=== PATIENT | female | born 1935 | race Caucasian/White ===

== ENCOUNTER 2020-02-29 12:19 | Inpatient (IN) | payer MEDICARE, BC ==
[~2020-02-29] VITALS: Ht 152.4 cm; Wt 62.6 kg
--- NOTE | 2020-02-29 13:04 | NUR ---
Female railroad track inspector accompanied female patient for (DR Jain).
[2020-02-29] MEDS ORDERED: IV NORMAL SALINE 1000 ML BAG IV ONE (13:15)
[2020-02-29 13:23] LABS: *OCCULT BLOOD STOOL POSITIVE (NEGATIVE)
[2020-02-29] MEDS ORDERED: IV NORMAL SALINE 0 ML IV ONE (13:29)
[2020-02-29] MEDS ORDERED: IOHEXOL 300MG/ML 100 ML INFUS..BTL ONE (13:29)
--- NOTE | 2020-02-29 13:44 | NUR ---
Pt declined to have IV contrasted CT. DR Jain made aware.
[2020-02-29 13:59] LABS: BASOPHILS # (AUTO) 0.1 K/uL (0.0-8.0); BASOPHILS % (AUTO) 1.3 % (0.0-2.0); EOSINOPHILS # (AUTO) 0.2 K/uL (0.0-0.7); EOSINOPHILS % (AUTO) 2.3 % (0.0-7.0); HEMATOCRIT 42.4 % (31.2-41.9); HEMOGLOBIN 13.9 g/dL (10.9-14.3); LYMPHOCYTES # (AUTO) 1.2 K/uL (20.0-40.0); LYMPHOCYTES % (AUTO) 16.8 % (20.5-51.5); MEAN CORPUSCULAR HEMOGLOBIN 30.1 uug (24.7-32.8); MEAN CORPUSCULAR HGB CONC 33 g/dL (32.3-35.6); MEAN CORPUSCULAR VOLUME 91.6 fL (75.5-95.3); MONOCYTES # (AUTO) 0.7 K/uL (2.0-10.0); MONOCYTES % (AUTO) 10.3 % (0.0-11.0); NEUTROPHILS # (AUTO) 4.8 K/uL (1.8-8.9); NEUTROPHILS % (AUTO) 69.3 % (38.5-71.5); PLATELET COUNT (AUTO) 264 K/uL (179-408); RED BLOOD CELL COUNT(AUTO) 4.63 MIL/uL (3.63-4.92); WHITE BLOOD COUNT (AUTO) 6.9 K/uL (3.8-11.8)
[2020-02-29 14:14] LABS: BILIRUBIN,DIRECT 0.3 mg/dL (0.0-0.2); BILIRUBIN,TOTAL 0.9 mg/dL (0.2-1.0); POTASSIUM 3.9 mmol/L (3.5-5.1); TOTAL PROTEIN, SERUM 7.5 g/dL (6.4-8.2)
--- NOTE | 2020-02-29 14:15 | NUR ---
Attempted to place a HL on Pt, but unable. Also attempted by another RN. Dr Jain made aware.Midline ordered.
--- NOTE | 2020-02-29 14:22 | NUR ---
Mid line Rn at the bedside.
--- NOTE | 2020-02-29 14:36 | NUR ---
Dorinda, midline RN placed 20 angio midline to RUE.
--- NOTE | 2020-02-29 15:55 | NUR ---
Dr Portillo, admitting at the bedside.
[2020-02-29] MEDS ORDERED: Z GUARD REMEDY PASTE 57 GM TUBE TOP PRN (16:30)
[2020-02-29] MEDS ORDERED: MAGNESIUM HYDROXIDE 30 ML LIQUID UDC PO PRN (16:30)
[2020-02-29] MEDS ORDERED: ONDANSETRON 4 MG/2 ML VIAL IV PRN (16:30)
[2020-02-29] MEDS: IV 1/2NS 1000 ML 1,000 ML IV PRN (18:47)
[2020-02-29] MEDS: METRONIDAZOLE 500 MG/NS 100ML 500 MG in PREMIXED 1 EACH IV SCH (18:59)
--- NOTE | 2020-02-29 19:00 | NUR ---
PATIENT ADMITTED FROM ER, ALERT, ORIENTED X3, NO SOB, RESP EVEN NONLABORED, SKIN WARM AND DRY TO TOUCH, NO DISTRESS NOTED, DROPLET PLACATIONS FOR COVED POSITIVE
--- NOTE | 2020-02-29 19:30 | NUR ---
RECEIVED PT AWAKE, ALERT AND ORIENTEDX4. IV INTACT. PT ON ROOM AIR. PT DEMANDING BED SIDE COMMODE. SAFETY AND COMFORT PROVIDED. WILL CONTINUE TO MONITOR.
[2020-02-29 20:00] VITALS: BP 134/76
[2020-02-29] MEDS ORDERED: levoFLOXacin 500 MG/D5W 500 MG in PREMIXED 1 EACH IV ONE (20:00)
[2020-02-29] MEDS: ACETAMINOPHEN 325 MG TABLET PO PRN (21:49)
[2020-03-01] MEDS: METRONIDAZOLE 500 MG/NS 100ML 500 MG in PREMIXED 1 EACH IV SCH ×3 (02:13→17:41)
[2020-03-01] MEDS: ACETAMINOPHEN 325 MG TABLET PO PRN ×2 (04:20→21:48)
[2020-03-01 04:28] LABS: *BILIRUBIN,URIN NEGATIVE (NEGATIVE); *BLOOD, URINE 2+ (NEGATIVE); *CLARITY,URINE SLIGHTLY CLOUDY (CLEAR); *COLOR,URINE YELLOW (YELLOW); *KETONES,URINE NEGATIVE (NEGATIVE); *UROBILINOGEN,URINE 0.2 E.U./dl (NORMAL); LEUKOCYTE ESTERASE ,URINE 2+ (NEGATIVE); NITRITE, URINE NEGATIVE (NEGATIVE); UGLUCOSE NEGATIVE (NEGATIVE)
[2020-03-01 05:00] VITALS: BP 128/75
--- NOTE | 2020-03-01 06:19 | NUR ---
PT SLEPT INTERMITTENTLY. PT IN NO ACUTE DISTRESS. PRESCRIBED MEDICATION GIVEN AND PT TOLERATED IT WELL. IV INTACT. PT GIVEN TYLENOL 650 MG PRN AT 2149H AND 0420h . PT TOLERATED IT WELL.PT WANTS TO HAVE HER KLONOPIN MEDICATION. SAFETY AND COMFORT PROVIDED. ALL NEEDS ARE MET. WILL ENDORSE TO INCOMING NURSE FOR CONTINUITY OF CARE.
[2020-03-01 06:42] LABS: BASOPHILS # (AUTO) 0.1 K/uL (0.0-8.0); BASOPHILS % (AUTO) 0.8 % (0.0-2.0); EOSINOPHILS # (AUTO) 0.3 K/uL (0.0-0.7); EOSINOPHILS % (AUTO) 4.4 % (0.0-7.0); HEMATOCRIT 40.2 % (31.2-41.9); HEMOGLOBIN 13.3 g/dL (10.9-14.3); LYMPHOCYTES # (AUTO) 1.7 K/uL (20.0-40.0); LYMPHOCYTES % (AUTO) 27.3 % (20.5-51.5); MEAN CORPUSCULAR HEMOGLOBIN 30.4 uug (24.7-32.8); MEAN CORPUSCULAR HGB CONC 33 g/dL (32.3-35.6); MEAN CORPUSCULAR VOLUME 91.5 fL (75.5-95.3); MONOCYTES # (AUTO) 0.7 K/uL (2.0-10.0); MONOCYTES % (AUTO) 11.4 % (0.0-11.0); NEUTROPHILS # (AUTO) 3.4 K/uL (1.8-8.9); NEUTROPHILS % (AUTO) 56.1 % (38.5-71.5); PLATELET COUNT (AUTO) 265 K/uL (179-408); RED BLOOD CELL COUNT(AUTO) 4.39 MIL/uL (3.63-4.92); WHITE BLOOD COUNT (AUTO) 6.1 K/uL (3.8-11.8)
[2020-03-01 07:10] LABS: BILIRUBIN,TOTAL 0.7 mg/dL (0.2-1.0); CREATININE 0.9 mg/dL (0.6-1.3); MAGNESIUM 1.4 mg/dL (1.8-2.4); POTASSIUM 3.4 mmol/L (3.5-5.1); TOTAL PROTEIN, SERUM 6.8 g/dL (6.4-8.2)
[2020-03-01 08:52] LABS: BACTERIA,URINE MODERATE /HPF (NONE SEEN); SQUAMOUS EPITHELIAL CELL,UR FEW /HPF (NONE SEEN)
[2020-03-01] MEDS: IV 1/2NS 1000 ML 1,000 ML IV PRN ×2 (10:25→13:47)
[2020-03-01] MEDS ORDERED: POTASSIUM CHLORIDE 20 MEQ TAB.PRT.SR PO SCH (11:00)
[2020-03-01 11:09] VITALS: BP 150/61
[2020-03-01] MEDS: MAGNESIUM SULFATE/D5W 100 ML IV SCH ×2 (12:05→13:46)
--- NOTE | 2020-03-01 15:28 | NUR ---
SW Family Contact: This SW attempted to contact patient's Jayce ([phone]) multiple times and was unavailable.
[2020-03-01 16:20] VITALS: BP 131/67
--- NOTE | 2020-03-01 19:30 | NUR ---
RECEIVED PT AWAKE, ALERT AND ORIENTEDX3. PT IN NO ACUTE DISTRESS. IV INTACT. SAFETY AND COMFORT PROVIDED. WILL CONTINUE TO MONITOR.
[2020-03-01 20:00] VITALS: BP 143/75
[2020-03-01] MEDS: LEVOFLOXACIN/D5W 250 MG in PREMIX 1 EA IV SCH (20:00)
--- NOTE | 2020-03-01 23:29 | NUR ---
TYLENOL PRN GIVEN AT 2148H. ZOFRAN PRN GIVEN AT 9H . PT TOLERATED IT WELL.
--- NOTE | 2020-03-01 23:30 | NUR ---
hands off report to Marielle LANGFORD. pt stable and in no acute distress.
[2020-03-02] MEDS: CLONAZEPAM 0.5 MG TABLET PO PRN ×2 (00:07→23:10)
[2020-03-02] MEDS: METRONIDAZOLE 500 MG/NS 100ML 500 MG in PREMIXED 1 EACH IV SCH ×3 (02:38→17:37)
--- NOTE | 2020-03-02 03:52 | NUR ---
Patient resting in bed upon rounds. Tolerated IV ABT well. No acute distress noted. VSS. IVF's infusing well. Denies any pain nor any discomfort. No nausea/vomiting noted. Will monitor patient.
[2020-03-02 04:00] VITALS: BP 122/68
--- NOTE | 2020-03-02 06:47 | NUR ---
End of shift notes: slept well most of the shift. OOB to bedside commode. Voided. Had episode on loose watery BM x1. On IV Flagyl. IVF's infusing @ 75 cc/hr via right upper midline.Attended to needs and met.
--- NOTE | 2020-03-02 08:00 | NUR ---
PATIENT REMAINS ON ISOLATION, DENIES ACUTE SOB OR PAIN, SITTING ON SIDE OF BED MOST OF THE TIME, NPO TILL FURTHER ORDER
[2020-03-02 08:28] LABS: BASOPHILS # (AUTO) 0.1 K/uL (0.0-8.0); BASOPHILS % (AUTO) 1.2 % (0.0-2.0); EOSINOPHILS # (AUTO) 0.1 K/uL (0.0-0.7); EOSINOPHILS % (AUTO) 2.6 % (0.0-7.0); HEMATOCRIT 38.2 % (31.2-41.9); HEMOGLOBIN 12.7 g/dL (10.9-14.3); LYMPHOCYTES # (AUTO) 1.4 K/uL (20.0-40.0); LYMPHOCYTES % (AUTO) 26.2 % (20.5-51.5); MEAN CORPUSCULAR HEMOGLOBIN 30.6 uug (24.7-32.8); MEAN CORPUSCULAR HGB CONC 33 g/dL (32.3-35.6); MEAN CORPUSCULAR VOLUME 92.1 fL (75.5-95.3); MONOCYTES # (AUTO) 0.5 K/uL (2.0-10.0); MONOCYTES % (AUTO) 9.2 % (0.0-11.0); NEUTROPHILS # (AUTO) 3.2 K/uL (1.8-8.9); NEUTROPHILS % (AUTO) 60.8 % (38.5-71.5); PLATELET COUNT (AUTO) 253 K/uL (179-408); RED BLOOD CELL COUNT(AUTO) 4.15 MIL/uL (3.63-4.92); WHITE BLOOD COUNT (AUTO) 5.3 K/uL (3.8-11.8)
[2020-03-02 08:44] LABS: CREATININE 0.9 mg/dL (0.6-1.3); POTASSIUM 3.5 mmol/L (3.5-5.1)
[2020-03-02 11:40] VITALS: BP 139/74
--- NOTE | 2020-03-02 12:00 | NUR ---
NO FURTHER DIARRHEA NOTED OR VOMITING. STARTED ON CLEAR LIQUID DIET
[2020-03-02 16:00] VITALS: BP 126/67
--- NOTE | 2020-03-02 18:00 | NUR ---
RESULTS OF COVID 19 TEST NEGATIVE PER BE FROM THE LAB
[2020-03-02 20:00] VITALS: BP 149/72
[2020-03-02] MEDS: LEVOFLOXACIN/D5W 250 MG in PREMIX 1 EA IV SCH (20:18)
[2020-03-02] MEDS: IV 1/2NS 1000 ML 1,000 ML IV PRN (23:30)
[2020-03-03] MEDS: METRONIDAZOLE 500 MG/NS 100ML 500 MG in PREMIXED 1 EACH IV SCH (01:40)
[2020-03-03 05:18] VITALS: BP 147/79
--- NOTE | 2020-03-03 06:50 | NUR ---
Pt slept well. No s/s of acute distress noted. Pt on RA denies SOB or pain. VSS. Safety measures in place.
[2020-03-03 07:20] LABS: BASOPHILS # (AUTO) 0.1 K/uL (0.0-8.0); BASOPHILS % (AUTO) 1.9 % (0.0-2.0); EOSINOPHILS # (AUTO) 0.3 K/uL (0.0-0.7); LYMPHOCYTES # (AUTO) 1.6 K/uL (20.0-40.0); LYMPHOCYTES % (AUTO) 25.5 % (20.5-51.5); MEAN CORPUSCULAR HEMOGLOBIN 29.9 uug (24.7-32.8); MEAN CORPUSCULAR HGB CONC 33 g/dL (32.3-35.6); MEAN CORPUSCULAR VOLUME 91.8 fL (75.5-95.3); MONOCYTES # (AUTO) 0.7 K/uL (2.0-10.0); MONOCYTES % (AUTO) 11.2 % (0.0-11.0); NEUTROPHILS # (AUTO) 3.5 K/uL (1.8-8.9); NEUTROPHILS % (AUTO) 56.4 % (38.5-71.5); PLATELET COUNT (AUTO) 240 K/uL (179-408); RED BLOOD CELL COUNT(AUTO) 4.36 MIL/uL (3.63-4.92); WHITE BLOOD COUNT (AUTO) 6.1 K/uL (3.8-11.8)
[2020-03-03 07:29] LABS: CREATININE 0.8 mg/dL (0.6-1.3); POTASSIUM 3.6 mmol/L (3.5-5.1)
[2020-03-03] MEDS: METRONIDAZOLE 500 MG TABLET PO SCH ×2 (11:38→18:31)
[2020-03-03 16:00] VITALS: BP 128/71
[2020-03-03] MEDS ORDERED: PRAV40TA3 PO (17:04)
[2020-03-03] MEDS ORDERED: ONDA4TAB11 PO (17:04)
[2020-03-03] MEDS ORDERED: SOTA80TA PO (17:04)
[2020-03-03] MEDS ORDERED: LOSA50TA39 PO (17:04)
[2020-03-03] MEDS ORDERED: APIX5TAB4 PO (17:04)
[2020-03-03] MEDS ORDERED: LEVO75TA7 PO (17:04)
[2020-03-03] MEDS ORDERED: CEPH500T PO (17:04)
[2020-03-03] MEDS ORDERED: ESCI10TA55 PO (17:04)
[2020-03-03] MEDS ORDERED: GABA-532 PO (17:04)
[2020-03-03] MEDS ORDERED: CLON0.5T4 PO (17:04)
[2020-03-03] MEDS ORDERED: PANT40TA49 PO (17:04)
--- NOTE | 2020-03-03 18:30 | NUR ---
REFUSING FLAGYL. STATES WILL SPEAK TO FIRST.
--- NOTE | 2020-03-03 19:00 | NUR ---
PT IN BED, ALERT ORIENTED,ABLE TO MAKE NEEDS KNOWN,VOIDED FREELY WELL USING BEDSIDE COMMODE. KEPT DRY AND CLEAN.SLEPT INTERMITTENTLY.IVF INFUSING WELL VIA MIDLINE ON RIGHT UPPER ARM. SAFETY MEASURES IMPLEMENTED AND OBSERVED.
[2020-03-03 20:00] VITALS: BP 124/64
[2020-03-03] MEDS: levoFLOXacin 500 MG TABLET PO SCH (20:00)
[2020-03-03] MEDS: CLONAZEPAM 0.5 MG TABLET PO PRN (22:05)
[2020-03-04] MEDS: METRONIDAZOLE 500 MG TABLET PO SCH ×3 (02:18→17:46)
--- NOTE | 2020-03-04 05:09 | NUR ---
ASSISTED TO USE BEDSIDE COMMODE, REPOSITIONED FOR COMFORT, MIDLINE ON RT. UPPERARM CLOGGED, TRIED TO FLUSH LINE BUT TO NO AVAIL.PT REFUSED TO HAVE IV RESTARTED AT THIS TIME.
--- NOTE | 2020-03-04 07:55 | NUR ---
Received PT in bed, awake AO X 4. PT is cooperative and pleasant. Makes needs known to staff. No acute distress or SOB noted. PT stated that they had a good sleep. Safety measures provided, call light within reach, bed low and lock. Will continue to monitor.
[2020-03-04 08:11] LABS: BASOPHILS # (AUTO) 0.1 K/uL (0.0-8.0); BASOPHILS % (AUTO) 1.3 % (0.0-2.0); EOSINOPHILS # (AUTO) 0.2 K/uL (0.0-0.7); EOSINOPHILS % (AUTO) 2.8 % (0.0-7.0); HEMATOCRIT 40.9 % (31.2-41.9); HEMOGLOBIN 13.2 g/dL (10.9-14.3); LYMPHOCYTES # (AUTO) 1.6 K/uL (20.0-40.0); LYMPHOCYTES % (AUTO) 20.4 % (20.5-51.5); MEAN CORPUSCULAR HGB CONC 32 g/dL (32.3-35.6); MEAN CORPUSCULAR VOLUME 93.4 fL (75.5-95.3); MONOCYTES # (AUTO) 0.6 K/uL (2.0-10.0); MONOCYTES % (AUTO) 7.5 % (0.0-11.0); NEUTROPHILS # (AUTO) 5.4 K/uL (1.8-8.9); PLATELET COUNT (AUTO) 213 K/uL (179-408); RED BLOOD CELL COUNT(AUTO) 4.38 MIL/uL (3.63-4.92); WHITE BLOOD COUNT (AUTO) 7.9 K/uL (3.8-11.8)
[2020-03-04 08:28] VITALS: BP 130/72
[2020-03-04 08:43] LABS: CREATININE 0.9 mg/dL (0.6-1.3); POTASSIUM 3.2 mmol/L (3.5-5.1)
[2020-03-04 11:00] VITALS: BP 129/56
[2020-03-04] MEDS ORDERED: POTASSIUM CHLORIDE 20 MEQ POWDER PACKET PO ONE (12:15)
[2020-03-04 14:35] VITALS: BP 113/57
[2020-03-04] MEDS ORDERED: CLONAZEPAM 0.5 MG TABLET PO PRN (15:30)
[2020-03-04] MEDS: GABAPENTIN 100 MG CAPSULE PO SCH (17:46)
--- NOTE | 2020-03-04 18:59 | NUR ---
PT in bed, awake AO X4. PT was able to consume all meals. Ambulates to commode with 1 person assist. No acute distress or SOB noted. Safety measures provided, call light within reach, bed low and lock. Will endorse report to night manager nurse
--- NOTE | 2020-03-04 19:54 | NUR ---
PT in bed, awake AO X4. Ambulates to commode with 1 person assist. No acute distress or SOB noted. Safety measures provided, call light within reach, bed low and lock. Will continue to monitor PT and follow plan of care.
[2020-03-04 20:00] VITALS: BP 125/81
--- NOTE | 2020-03-04 20:00 | NUR ---
OPENING NOTE: PT in bed, awake AO X4. Ambulates to commode with 1 person assist. PT is on 2L nasal cannula. No acute distress or SOB noted. Safety measures provided, call light within reach, bed low and lock. Will continue to monitor PT and follow plan of care.
[2020-03-04] MEDS ORDERED: ATORVASTATIN 10 MG TABLET PO SCH (21:00)
[2020-03-04] MEDS ORDERED: Medication Not On Formulary EA (Apixaban (Eliquis) 5 MG) PO SCH (21:00)
[2020-03-04] MEDS: levoFLOXacin 500 MG TABLET PO SCH (21:24)
[2020-03-04] MEDS: APIXABAN 5 MG TABLET PO SCH (21:26)
[2020-03-04] MEDS: ACETAMINOPHEN 325 MG TABLET PO PRN (22:32)
[2020-03-05] MEDS: METRONIDAZOLE 500 MG TABLET PO SCH ×3 (02:12→17:42)
[2020-03-05 04:00] VITALS: BP 124/60
--- NOTE | 2020-03-05 06:46 | NUR ---
CLOSING NOTES: PT in bed, awake AO X4. Ambulates to commode with 1 person assist. PT is on 2L nasal cannula, saturating at 96%. No acute distress or SOB noted. Safety measures provided, call light within reach, bed low and lock. Will continue to monitor PT and follow plan of care. Will endorse to the on coming shift.
[2020-03-05] MEDS ORDERED: PANTOPRAZOLE SODIUM 40 MG TABLET.DR PO SCH (07:00)
[2020-03-05] MEDS ORDERED: LEVOTHYROXINE SODIUM 75 MCG TABLET PO SCH (07:00)
[2020-03-05 08:38] LABS: POTASSIUM 3.6 mmol/L (3.5-5.1)
[2020-03-05] MEDS ORDERED: LOSARTAN POTASSIUM 50 MG TABLET PO SCH (09:00)
[2020-03-05] MEDS: GABAPENTIN 100 MG CAPSULE PO SCH ×3 (09:08→17:27)
[2020-03-05] MEDS: APIXABAN 5 MG TABLET PO SCH (09:22)
[2020-03-05 10:21] LABS: BASOPHILS # (AUTO) 0.1 K/uL (0.0-8.0); BASOPHILS % (AUTO) 1.4 % (0.0-2.0); EOSINOPHILS # (AUTO) 0.4 K/uL (0.0-0.7); HEMATOCRIT 40.5 % (31.2-41.9); HEMOGLOBIN 12.6 g/dL (10.9-14.3); LYMPHOCYTES # (AUTO) 1.5 K/uL (20.0-40.0); LYMPHOCYTES % (AUTO) 29.6 % (20.5-51.5); MEAN CORPUSCULAR HEMOGLOBIN 30.2 uug (24.7-32.8); MEAN CORPUSCULAR HGB CONC 31 g/dL (32.3-35.6); MEAN CORPUSCULAR VOLUME 97.3 fL (75.5-95.3); MONOCYTES # (AUTO) 0.6 K/uL (2.0-10.0); NEUTROPHILS # (AUTO) 2.5 K/uL (1.8-8.9); PLATELET COUNT (AUTO) 193 K/uL (179-408); RED BLOOD CELL COUNT(AUTO) 4.16 MIL/uL (3.63-4.92); WHITE BLOOD COUNT (AUTO) 5.2 K/uL (3.8-11.8)
[2020-03-05 11:43] VITALS: BP 141/57
[2020-03-05] MEDS ORDERED: levoFLOXacin PO (15:10)
[2020-03-05] MEDS ORDERED: METR-147 PO (15:10)
[2020-03-05 15:45] VITALS: BP 118/50
--- NOTE | 2020-03-05 17:44 | NUR ---
PT in bed, awake AO X4. Ambulates to commode with 1 person assist. initially refused ATB flagyl, explained to her that she needs to finish the antibiotic for 7 days, understand and verbalized her understanding to continue taking her antibiotic. No acute distress or SOB noted. Safety measures provided, call light within reach, bed low and lock. had PT jose enrique, will be discharged with this afternoon and be pickup by her son Jayce. give discharged pocket and explained to the pt the discharge instructions, pt understand and verbalized her understanding
[2020-03-05] MEDS ORDERED: SOTALOL HCL 80 MG TABLET PO SCH (21:00)
[2020-03-06] MEDS ORDERED: ESCITALOPRAM OXALATE 10 MG TABLET PO SCH (09:00)
== END 2020-03-05 19:30 | disposition home health service (06) | DRG 393 ==
LOC: ER 12:19 → MEDSURG3 17:35
PROVIDERS: ADMIT Internal Medicine; ATTEND Family Medicine
PROC: 05HY33Z Insertion of Infusion Device into Upper Vein, Percutaneous Approach (ICD-10-PCS; principal; 2020-02-29)
DX: K62.89 Other specified diseases of anus and rectum (principal); J12.9 Viral pneumonia, unspecified; Z86.16 Personal history of COVID-19; E03.9 Hypothyroidism, unspecified; I10 Essential (primary) hypertension; Z86.73 Personal history of transient ischemic attack (TIA), and cerebral infarction without residual deficits; K76.0 Fatty (change of) liver, not elsewhere classified; Z87.01 Personal history of pneumonia (recurrent); E66.9 Obesity, unspecified; Z68.27 Body mass index [BMI] 27.0-27.9, adult; K57.30 Diverticulosis of large intestine without perforation or abscess without bleeding; Z20.822 Contact with and (suspected) exposure to COVID-19
CPT/HCPCS: 36415; 70030-TC; 71045; 83605; 83690; 83735; 84100; 85025; 85730; 87040; 87077; 87086; 93005; A4663; G0378; J1956; J2405; J3475; J3490; J7050; Q9967; U0003

== ENCOUNTER 2021-05-26 18:49 | Inpatient (IN) | payer MEDICARE, BC ==
[~2021-05-26] VITALS: Ht 160 cm; Wt 88.0 kg
[~2021-05-26 18:49] MED LIST: APIX5TAB4 PO; CLON0.5T4 PO; ESCI-9 PO; GABA-532 PO; LEVO75TA7 PO; LOSA50TA39 PO; METR-147 PO; ONDA4TAB11 PO; PANT40TA49 PO; PRAV40TA3 PO; SOTA80TA PO; levoFLOXacin PO
--- NOTE | 2021-05-26 19:00 | NUR ---
Patient is brought by EMS, alert and orientedx3. Patient complaints of body pains, no nausea/vomiting. History of cardiac afib, hypertension. Not in distress.
[2021-05-26] MEDS ORDERED: ONDANSETRON 4 MG/2 ML VIAL IV ONE (20:15)
[2021-05-26] MEDS ORDERED: HYDROMORPHONE 1 MG/1 ML DISP.SYRIN IV ONE (20:15)
[2021-05-26 20:39] LABS: HEMATOCRIT 47.2 % (31.2-41.9); MEAN CORPUSCULAR HEMOGLOBIN 29.2 uug (24.7-32.8); MEAN CORPUSCULAR VOLUME 89.3 fL (75.5-95.3); PLATELET COUNT (AUTO) 207 K/uL (179-408)
[2021-05-26 20:41] LABS: *BILIRUBIN,URIN NEGATIVE (NEGATIVE); *CLARITY,URINE CLEAR (CLEAR); *COLOR,URINE YELLOW (YELLOW); *KETONES,URINE NEGATIVE (NEGATIVE); *UROBILINOGEN,URINE 0.2 E.U./dl (NORMAL); LEUKOCYTE ESTERASE ,URINE NEGATIVE (NEGATIVE); NITRITE, URINE NEGATIVE (NEGATIVE); UGLUCOSE NEGATIVE (NEGATIVE)
[2021-05-26 20:45] LABS: *BLOOD, URINE TRACE (NEGATIVE)
[2021-05-26 20:47] LABS: CARBON DIOXIDE 25 mmol/L (21-32); CHLORIDE 103 mmol/L (98-107); CREATININE 0.6 mg/dL (0.6-1.3); GLUCOSE 115 mg/dL (74-106); POTASSIUM 3.7 mmol/L (3.5-5.1); UREA NITROGEN, BLOOD 12 mg/dL (7-18)
[2021-05-26 20:48] LABS: BACTERIA,URINE NONE SEEN /HPF (NONE SEEN); RBC,URINE 0-3 /HPF (0-3); SQUAMOUS EPITHELIAL CELL,UR NONE SEEN /HPF (NONE SEEN); WBC,URINE NONE SEEN /HPF (0-3)
[2021-05-26 20:55] LABS: ALANINE AMINOTRANSFERASE 19 U/L (14-59); ALKALINE PHOSPHATASE 108 U/L (50-136); ASPARTATE AMINOTRANSFERASE 14 U/L (15-37); BILIRUBIN,DIRECT 0.1 mg/dL (0.0-0.2); BILIRUBIN,TOTAL 0.6 mg/dL (0.2-1.0); LIPASE 26 U/L (73-393); TOTAL PROTEIN, SERUM 7.6 g/dL (6.4-8.2)
[2021-05-26] MEDS ORDERED: ONDANSETRON 4 MG/2 ML VIAL ONE (21:02)
[2021-05-26] MEDS ORDERED: HYDROMORPHONE 1 MG/1 ML DISP.SYRIN ONE (21:03)
--- NOTE | 2021-05-26 21:23 | NUR ---
pt cleaned and changed as she voided in the bed. pt now taken for cat scan.
--- NOTE | 2021-05-26 21:38 | NUR ---
pt returned from cat scan.
--- NOTE | 2021-05-27 00:33 | NUR ---
pt placed in hospital bed for comfort. pt unable to go home as she states she does not have a ride. Dr. Ibeth yuan.
--- NOTE | 2021-05-27 03:04 | NUR ---
call placed to [facility] regarding cat scan.
[2021-05-27] MEDS ORDERED: OXYC-128 PO (04:28)
--- NOTE | 2021-05-27 05:40 | NUR ---
911 run sheet requested from ER budget report clerk multiple calls made to the number that called 911. This number is [phone]. When this number is called it rings then states enter access code. Asked pt a number for her son she states she does not know it.
--- NOTE | 2021-05-27 08:18 | NUR ---
Pt sleeping in bed, arouses easily, no complaints, no distress noted. Gave pt breakfast tray.
--- NOTE | 2021-05-27 09:20 | NUR ---
Gave report to ANASTASIYA Cohen.
[2021-05-27 10:30] VITALS: BP 132/68
--- NOTE | 2021-05-27 10:30 | NUR ---
admitted from er an 86 yo female c/o increasing myalgia, generalized weakness, awake alert and answer questions appropriately. routine admission assessment done DR PASTOR made aware of admission
[2021-05-27] MEDS ORDERED: TEMAZEPAM 15 MG CAPSULE PO PRN (11:30)
[2021-05-27] MEDS ORDERED: CLONAZEPAM 0.5 MG TABLET PO PRN (11:30)
[2021-05-27] MEDS ORDERED: MAGNESIUM HYDROXIDE 30 ML LIQUID UDC PO PRN (11:30)
[2021-05-27] MEDS ORDERED: ACETAMINOPHEN 325 MG TABLET PO PRN (11:30)
[2021-05-27] MEDS ORDERED: ONDANSETRON 4 MG/2 ML VIAL IV PRN (11:30)
[2021-05-27] MEDS ORDERED: HYDROCODONE/APAP 5-325MG TABLET PO PRN (11:30)
[2021-05-27] MEDS ORDERED: APIXABAN 5 MG TABLET PO ONE (12:00)
[2021-05-27] MEDS: GABAPENTIN 100 MG CAPSULE PO SCH ×2 (12:26→17:07)
[2021-05-27 16:00] VITALS: BP 135/70
--- NOTE | 2021-05-27 16:04 | NUR ---
PATIENT REMAINS CALM, COMFORTABLE AND COMPLIANCE WITH CARE, DENIES PAIN OR FEELING OF DISTRESS. O2 AT 2L NC SATURATING 95%. WILL CONTINUE TO OBSERVE
[2021-05-27 20:30] VITALS: BP 136/54
[2021-05-27] MEDS: SOTALOL HCL 80 MG TABLET PO SCH (20:32)
[2021-05-27] MEDS: ATORVASTATIN 10 MG TABLET PO SCH (20:33)
[2021-05-27] MEDS: APIXABAN 5 MG TABLET PO SCH (20:35)
[2021-05-27] MEDS: DOCUSATE SODIUM 100 MG CAPSULE PO SCH (20:46)
[2021-05-28 00:20] VITALS: BP 147/57
[2021-05-28 04:15] VITALS: BP 145/74
--- NOTE | 2021-05-28 06:00 | NUR ---
Pt rested well in between care; no SOB; assisted with needs; continue to monitor; continue plan of care.
[2021-05-28] MEDS: PANTOPRAZOLE SODIUM 40 MG TABLET.DR PO SCH (06:17)
[2021-05-28] MEDS: LEVOTHYROXINE SODIUM 75 MCG TABLET PO SCH (06:17)
[2021-05-28] MEDS ORDERED: PANTOPRAZOLE SODIUM 40 MG TABLET.DR PO SCH (07:00)
[2021-05-28 07:06] LABS: HEMATOCRIT 42.5 % (31.2-41.9); MEAN CORPUSCULAR VOLUME 89.2 fL (75.5-95.3); PLATELET COUNT (AUTO) 205 K/uL (179-408)
[2021-05-28 07:28] LABS: BILIRUBIN,TOTAL 0.6 mg/dL (0.2-1.0); MAGNESIUM 2.2 mg/dL (1.8-2.4); PHOSPHOROUS 4.2 mg/dL (2.5-4.9); POTASSIUM 4.4 mmol/L (3.5-5.1); TOTAL PROTEIN, SERUM 6.9 g/dL (6.4-8.2)
[2021-05-28 08:00] VITALS: BP 136/78
[2021-05-28 08:19] LABS: THYROID STIMULATING HORMONE 3.374 mIU/mL (0.358-3.740)
[2021-05-28] MEDS: LOSARTAN POTASSIUM 50 MG TABLET PO SCH (08:59)
[2021-05-28] MEDS: SOTALOL HCL 80 MG TABLET PO SCH (09:00)
[2021-05-28] MEDS ORDERED: ESCITALOPRAM OXALATE 10 MG TABLET PO SCH (09:00)
[2021-05-28] MEDS: APIXABAN 5 MG TABLET PO SCH ×2 (09:00→20:20)
[2021-05-28] MEDS: GABAPENTIN 100 MG CAPSULE PO SCH ×3 (09:00→16:22)
[2021-05-28 12:00] VITALS: BP 145/65
--- NOTE | 2021-05-28 12:00 | NUR ---
NO ACUTE CHANGE FROM MORNING ASSESSMENT
[2021-05-28 16:01] VITALS: BP 135/33
--- NOTE | 2021-05-28 17:14 | NUR ---
CONTINUE TELE STATUS, SEEN BY DR ROGER DCD SOTALOL DUE TO LOW HEART RATE
[2021-05-28] MEDS: DOCUSATE SODIUM 100 MG CAPSULE PO SCH (20:20)
[2021-05-28] MEDS: ATORVASTATIN 10 MG TABLET PO SCH (20:20)
[2021-05-28 20:21] VITALS: BP 155/67
[2021-05-29] VITALS: BP 145/57
[2021-05-29 04:21] VITALS: BP 161/73
[2021-05-29] MEDS: PANTOPRAZOLE SODIUM 40 MG TABLET.DR PO SCH (06:19)
[2021-05-29] MEDS: LEVOTHYROXINE SODIUM 75 MCG TABLET PO SCH (06:20)
--- NOTE | 2021-05-29 07:06 | NUR ---
patient rested well in between care; pt refuses this morning's medication; pt verbalized concern about the pt next door to her; pt reassured that the pt next door is being taken care for.
[2021-05-29] MEDS: APIXABAN 5 MG TABLET PO SCH ×2 (08:51→21:35)
[2021-05-29] MEDS: GABAPENTIN 100 MG CAPSULE PO SCH ×3 (08:55→16:59)
[2021-05-29] MEDS: LOSARTAN POTASSIUM 50 MG TABLET PO SCH (08:59)
--- NOTE | 2021-05-29 10:00 | NUR ---
DR JOEL HERE SEEN PATIENT WITH NO NEW ORDERS AT THIS TIME.
[2021-05-29 11:31] VITALS: BP 141/68
[2021-05-29] MEDS ORDERED: CLONAZEPAM 0.5 MG TABLET PO PRN (14:00)
--- NOTE | 2021-05-29 14:00 | NUR ---
PATIENT STATED THAT SHE WANTS HER KLONOPIN TO BE ORDERED NEEDED INSTEAD OF ONE TIME AT NIGHT NOTIFIED DR PASTOR WITH NEW ORDERS AND NOTED PATIENT NOTIFIED THAT WE NOW HAVE AN ORDER AND SHE CAN REQUEST FOR THE KLONOPIN EVERY 8 HOURS NEEDED AND SHE EXPRESSED UNDERSTANDING.
[2021-05-29 16:38] VITALS: BP 150/79
--- NOTE | 2021-05-29 18:03 | NUR ---
RESTING DENIES CHEST PAIN USING O2 ON AND OFF WITH NO SOB AT THIS TIME WILL CONTINUE TO OBSERVE.
[2021-05-29 20:15] VITALS: BP 160/59
[2021-05-29] MEDS: DOCUSATE SODIUM 100 MG CAPSULE PO SCH (21:00)
[2021-05-29] MEDS: ATORVASTATIN 10 MG TABLET PO SCH (21:37)
[2021-05-30] VITALS: BP 185/81
[2021-05-30 04:21] VITALS: BP 115/62
[2021-05-30 06:38] LABS: MEAN CORPUSCULAR HEMOGLOBIN 30.4 uug (24.7-32.8); MEAN CORPUSCULAR VOLUME 89.7 fL (75.5-95.3); PLATELET COUNT (AUTO) 212 K/uL (179-408)
[2021-05-30 06:53] LABS: CREATININE 0.9 mg/dL (0.6-1.3); MAGNESIUM 2.1 mg/dL (1.8-2.4); PHOSPHOROUS 3.4 mg/dL (2.5-4.9); POTASSIUM 4.8 mmol/L (3.5-5.1)
[2021-05-30] MEDS: LEVOTHYROXINE SODIUM 75 MCG TABLET PO SCH (07:00)
[2021-05-30] MEDS: PANTOPRAZOLE SODIUM 40 MG TABLET.DR PO SCH (07:00)
--- NOTE | 2021-05-30 07:41 | NUR ---
RECEIVED PATIENT IN BED AWAKE ALERT AND ORIENTED DENIES PAIN OR DISCOMFORTS AT THIS TIME DENIES SHORTNESS OF BREATH O2 NOT IN USE AT THIS TIME PATIENT HAS THE TENDENCY TO REMOVE BUT SATS HAS BEEN ADEQUATE CALL LIGHTS AND HER PERSONAL BELONGINGS WILL CONTINUE TO OBSERVE.
[2021-05-30] MEDS: GABAPENTIN 100 MG CAPSULE PO SCH ×2 (09:00→13:00)
[2021-05-30] MEDS ORDERED: LOSARTAN POTASSIUM 50 MG TABLET PO SCH (09:00)
[2021-05-30] MEDS ORDERED: LOSA50TA39 PO (09:18)
[2021-05-30] MEDS ORDERED: MECLIZINE HCL 25 MG TABLET PO PRN (09:30)
[2021-05-30] MEDS: APIXABAN 5 MG TABLET PO SCH (09:40)
--- NOTE | 2021-05-30 10:00 | NUR ---
ORDER TO DISCHARGE PATIENT HOME TODAY NOTED AND PER THE STUDENT LIAISON OFFICER PATIENTS SON EDITH WILL BE HERE TO PICK PATIENT UP ABOUT 2PM TODAY.
[2021-05-30 11:51] VITALS: BP 125/60
--- NOTE | 2021-05-30 13:45 | NUR ---
NOTED THAT PATIENT HAS HER O2 ON AND SHE HAS BEEN WEARING THE O2 ON AND OFF SO O2 REMOVED AT THIS TIME TO REASSESS THE NEED FOR HOME O2 PATIENT IS ON ROOM AIR AT THIS TIME WILL CHECK O2 SAT IN ABOUT 15 MINS OR SOONER IF SHE EXPERIENCES SHORTNESS OF BREATH.
--- NOTE | 2021-05-30 13:59 | NUR ---
O2 SAT RECHECKED AND ROOM AIR SAT IS 97 PERCENT SO PATIENT HAS NO NEED FOR HOME O2 HER SON EDITH IS PRESENT IN THE ROOM.
--- NOTE | 2021-05-30 14:00 | NUR ---
PATIENT DISCHARGED WITH ALL HER PERSONAL BELONGINGS AND WAS INSTRUCTED TO STOP TAKING SOTALOL AND TO INCREASE THE FREQUENCY OF HER LORSARTAN TO TWICE A DAY INSTEAD OF ONCE A DAY AND TO CALL FOR A FOLLOW UP APPOINTMENT WITH HER PRIMARY DOCTOR WITHIN THE NEXT ONE TO TWO WEEKS AND SHE EXPRESSED UNDERSTANDING.
== END 2021-05-30 14:00 | disposition home health service (06) | DRG 310 ==
LOC: ER 18:50 → MEDSURG3 05-27 10:00 → TELE3 05-27 10:20 → MEDSURG3 05-30 06:55
PROVIDERS: ADMIT Internal Medicine; ATTEND Internal Medicine
DX: R00.1 Bradycardia, unspecified (principal); I48.20 Chronic atrial fibrillation, unspecified; R53.1 Weakness; F07.81 Postconcussional syndrome; G30.9 Alzheimer's disease, unspecified; F02.80 Dementia in other diseases classified elsewhere, unspecified severity, without behavioral disturbance, psychotic disturbance, mood disturbance, and anxiety; E03.9 Hypothyroidism, unspecified; E78.5 Hyperlipidemia, unspecified; I10 Essential (primary) hypertension; Z86.16 Personal history of COVID-19; M41.9 Scoliosis, unspecified; R10.9 Unspecified abdominal pain; K44.9 Diaphragmatic hernia without obstruction or gangrene; I70.90 Unspecified atherosclerosis; M19.90 Unspecified osteoarthritis, unspecified site; G31.9 Degenerative disease of nervous system, unspecified; M79.10 Myalgia, unspecified site; Z91.81 History of falling; Z79.01 Long term (current) use of anticoagulants; Z90.710 Acquired absence of both cervix and uterus; K40.20 Bilateral inguinal hernia, without obstruction or gangrene, not specified as recurrent; Z20.822 Contact with and (suspected) exposure to COVID-19; E66.3 Overweight; Z68.34 Body mass index [BMI] 34.0-34.9, adult
CPT/HCPCS: 36415; 70450; 71045; 83605; 83690; 83735; 84100; 84443; 84484; 85025; 85651; 93005; 93307; 97161; A4663; G0378; J1170; J2405

== ENCOUNTER 2022-06-08 22:33 | Emergency (ER) | payer MEDICARE, BC ==
[~2022-06-08] VITALS: Ht 154.9 cm; Wt 90.7 kg
[~2022-06-08 22:33] MED LIST changes: -METR-147 PO; -ONDA4TAB11 PO; -SOTA80TA PO; -levoFLOXacin PO
[2022-06-08] MEDS: ONDANSETRON 4 MG/2 ML VIAL IV ONE (23:00)
[2022-06-08] MEDS: HYDROMORPHONE 1 MG/1 ML DISP.SYRIN IV ONE (23:00)
[2022-06-08] MEDS: IV NORMAL SALINE 1000 ML BAG IV ONE (23:00)
--- NOTE | 2022-06-08 23:00 | NUR ---
Dr. Cristina evaluating patient at bedside. MSE in progress.
--- NOTE | 2022-06-09 | NUR ---
Unable to administer dilaudid 1mg, 1L 0.9%NS and Zofran 4mg IV due to unable to get IV access. Patient is hard stick. Dr. Cristina aware
--- NOTE | 2022-06-09 00:38 | NUR ---
After multiple IV attempts, pt refused anymore IV insertion. notified.
[2022-06-09 01:45] LABS: ALANINE AMINOTRANSFERASE 17 U/L (14-59); ALKALINE PHOSPHATASE 111 U/L (50-136); ASPARTATE AMINOTRANSFERASE 26 U/L (15-37); BILIRUBIN,DIRECT < 0.1 mg/dL (0.0-0.2); BILIRUBIN,TOTAL 0.6 mg/dL (0.2-1.0); CARBON DIOXIDE 22 mmol/L (21-32); CHLORIDE 101 mmol/L (98-107); GLUCOSE 129 mg/dL (74-106); LIPASE 36 U/L (73-393); POTASSIUM 5.3 mmol/L (3.5-5.1); TOTAL PROTEIN, SERUM 7.8 g/dL (6.4-8.2); UREA NITROGEN, BLOOD 24 mg/dL (7-18)
[2022-06-09 02:00] LABS: *BILIRUBIN,URIN NEGATIVE (NEGATIVE); *BLOOD, URINE NEGATIVE (NEGATIVE); *CLARITY,URINE CLEAR (CLEAR); *COLOR,URINE YELLOW (YELLOW); *KETONES,URINE 2+ (NEGATIVE); *UROBILINOGEN,URINE 0.2 E.U./dl (NORMAL); LEUKOCYTE ESTERASE ,URINE NEGATIVE (NEGATIVE); NITRITE, URINE NEGATIVE (NEGATIVE); UGLUCOSE NEGATIVE (NEGATIVE)
[2022-06-09 02:23] LABS: HEMATOCRIT 40.5 % (31.2-41.9); MEAN CORPUSCULAR HEMOGLOBIN 29.6 uug (24.7-32.8); MEAN CORPUSCULAR VOLUME 88.1 fL (75.5-95.3); PLATELET COUNT (AUTO) 203 K/uL (179-408)
[2022-06-09] MEDS ORDERED: HYDR-3980 PO (03:36)
[2022-06-09] MEDS ORDERED: PROC10TA29 PO (03:36)
--- NOTE | 2022-06-09 04:00 | NUR ---
Miriam nugent in ED - 06/09/22 at 0415 by ABEL Spoke with patient's Rich. Per , he will come to tack picker patient in 1hr.
--- NOTE | 2022-06-09 04:23 | NUR ---
Spoke with Jayce (son) regarding patient ready for discharge. Patient's son unable to pick her up at this time. Per son Munira Eduardo (patient's roomate) can pick her up.
--- NOTE | 2022-06-09 04:26 | NUR ---
Called Munira cardenas) at , no answer. Left a message. Waiting for call back.
--- NOTE | 2022-06-09 04:30 | NUR ---
Called patient's home phone number [phone], no answer. Left a message.
--- NOTE | 2022-06-09 05:49 | NUR ---
#2 attempt call to Munira. No answer. Left a voicemail.
--- NOTE | 2022-06-09 07:22 | NUR ---
Called Jayce (son) no answer, left a voicemail.
--- NOTE | 2022-06-09 07:30 | NUR ---
Mechanism Assembler assumes care. Patient is waiting for someone to mixing picker tender her up. Patient has been discharged to home by Dr Cristina@[id number]. Written and verbal after care instructions were given by previous RN. Patient verbalized understanding and compliance of instructions. Stressed follow up with primary doctor or return to ER for worsening s/s.
--- NOTE | 2022-06-09 08:33 | NUR ---
Patient's son came and fern picker the patient. Patient left ER in stable condition.
== END 2022-06-09 08:38 | disposition home or self-care (01) ==
LOC: ER 22:33
DX: K80.50 Calculus of bile duct without cholangitis or cholecystitis without obstruction (principal); I48.91 Unspecified atrial fibrillation; E03.9 Hypothyroidism, unspecified; Z90.710 Acquired absence of both cervix and uterus; Z88.1 Allergy status to other antibiotic agents; Z79.899 Other long term (current) drug therapy
CPT/HCPCS: 36415; 83605; 83690; 84484; 85025; 85730; 93005; A4663

== ENCOUNTER 2022-10-06 03:15 | Inpatient (IN) | payer MEDICARE, BC ==
[~2022-10-06] VITALS: Ht 157.5 cm; Wt 86.0 kg
[~2022-10-06 03:15] MED LIST changes: +HYDR-3980 PO; +PROC10TA29 PO
[2022-10-06] MEDS ORDERED: IV NORMAL SALINE 500 ML BAG IV ONE (03:30)
[2022-10-06] MEDS ORDERED: ONDANSETRON 4 MG/2 ML VIAL IV ONE (03:30)
[2022-10-06] MEDS ORDERED: ONDANSETRON 4 MG/2 ML VIAL ONE (03:36)
[2022-10-06] MEDS ORDERED: ONDANSETRON ODT 4 MG TAB.RAPDIS ONE (03:52)
[2022-10-06] MEDS ORDERED: ONDANSETRON ODT 4 MG TAB.RAPDIS SL ONE (04:00)
[2022-10-06 04:07] LABS: BASOPHILS % (AUTO) 0.4 % (0.0-2.0); DIFFERENTIAL COMMENT 0; EOSINOPHILS % (AUTO) 0.4 % (0.0-7.0); HEMATOCRIT 46.1 % (31.2-41.9); HEMOGLOBIN 15.2 g/dL (10.9-14.3); LYMPHOCYTES # (AUTO) 0.9 K/uL (0.8-4.8); LYMPHOCYTES % (AUTO) 9.7 % (20.5-51.5); MEAN CORPUSCULAR HEMOGLOBIN 29.7 uug (24.7-32.8); MEAN CORPUSCULAR HGB CONC 33 g/dL (32.3-35.6); MONOCYTES # (AUTO) 0.6 K/uL (0.1-1.30); MONOCYTES % (AUTO) 5.9 % (0.0-11.0); NEUTROPHILS % (AUTO) 83.6 % (38.5-71.5); PLATELET COUNT (AUTO) 217 K/uL (179-408); RED BLOOD CELL COUNT(AUTO) 5.12 MIL/uL (3.63-4.92); RED CELL DISTRIBUTION WIDTH 15.7 % (12.3-17.7); WHITE BLOOD COUNT (AUTO) 9.5 K/uL (3.8-11.8)
[2022-10-06 04:31] LABS: CALCIUM 9.2 mg/dL (8.5-10.1); CARBON DIOXIDE 20 mmol/L (21-32); CHLORIDE 100 mmol/L (98-107); CREATININE 1.1 mg/dL (0.6-1.3); GLUCOSE 178 mg/dL (74-106); POTASSIUM 3.9 mmol/L (3.5-5.1); SODIUM SERUM 135 mmol/L (136-145); UREA NITROGEN, BLOOD 17 mg/dL (7-18)
[2022-10-06 04:40] LABS: ALANINE AMINOTRANSFERASE 10 U/L (14-59); ALBUMIN 3.4 g/dL (3.4-5.0); ALKALINE PHOSPHATASE 119 U/L (50-136); ASPARTATE AMINOTRANSFERASE 13 U/L (15-37); BILIRUBIN,DIRECT 0.2 mg/dL (0.0-0.2); BILIRUBIN,TOTAL 0.7 mg/dL (0.2-1.0); LIPASE 22 U/L (73-393); TOTAL PROTEIN, SERUM 7.9 g/dL (6.4-8.2)
[2022-10-06] MEDS ORDERED: DIPHENOXYLATE HCL/ATROP SULF TABLET PO ONE (05:00)
[2022-10-06] MEDS ORDERED: DICYCLOMINE HCL LIQ 10 MG/5 ML UDC PO ONE (05:00)
[2022-10-06] MEDS ORDERED: DICYCLOMINE HCL LIQ 10 MG/5 ML UDC ONE (05:03)
[2022-10-06] MEDS ORDERED: DIPHENOXYLATE HCL/ATROP SULF TABLET ONE (05:03)
[2022-10-06] MEDS ORDERED: IV NORMAL SALINE 250 ML IV ONE (13:45)
[2022-10-06] MEDS ORDERED: SWABABLE VALVE TRANSFER SET EA MC ONE (13:45)
[2022-10-06] MEDS ORDERED: IOHEXOL 350 100 ML INFUS..BTL ONE (13:45)
[2022-10-06] MEDS ORDERED: ALBUTEROL SULFATE 2.5 MG/3 ML NEBU NEB PRN (20:45)
[2022-10-06] MEDS ORDERED: ACETAMINOPHEN 325 MG TABLET PO PRN (20:45)
[2022-10-06] MEDS ORDERED: ONDANSETRON 4 MG/2 ML VIAL IV PRN (20:45)
[2022-10-06] MEDS: PIPERACILLIN SODIUM/TAZOBACTAM 3.375 G in IV DEXTROSE 5% 50 ML IV SCH (22:00)
[2022-10-06 22:03] VITALS: BP 157/68; TEMP 98.7; O2SAT 94
[2022-10-07 04:11] VITALS: BP 162/86; TEMP 98.7; O2SAT 93
[2022-10-07] MEDS: PIPERACILLIN SODIUM/TAZOBACTAM 3.375 G in IV DEXTROSE 5% 50 ML IV SCH (06:00)
[2022-10-07] MEDS: PANTOPRAZOLE SODIUM 40 MG TABLET.DR PO SCH (06:25)
[2022-10-07 06:51] LABS: BASOPHILS # (AUTO) 0.1 K/UL (0.0-0.2); BASOPHILS % (AUTO) 1.1 % (0.0-2.0); HEMATOCRIT 43.8 % (31.2-41.9); HEMOGLOBIN 14.5 g/dL (10.9-14.3); LYMPHOCYTES # (AUTO) 1.9 K/uL (0.8-4.8); LYMPHOCYTES % (AUTO) 21.1 % (20.5-51.5); MEAN CORPUSCULAR HEMOGLOBIN 29.7 uug (24.7-32.8); MEAN CORPUSCULAR HGB CONC 33 g/dL (32.3-35.6); MEAN CORPUSCULAR VOLUME 89.7 fL (75.5-95.3); MONOCYTES % (AUTO) 11.7 % (0.0-11.0); NEUTROPHILS # (AUTO) 5.9 K/uL (1.8-8.9); NEUTROPHILS % (AUTO) 66.1 % (38.5-71.5); PLATELET COUNT (AUTO) 213 K/uL (179-408); RED BLOOD CELL COUNT(AUTO) 4.88 MIL/uL (3.63-4.92); RED CELL DISTRIBUTION WIDTH 15.6 % (12.3-17.7); WHITE BLOOD COUNT (AUTO) 8.9 K/uL (3.8-11.8)
[2022-10-07 07:23] LABS: DIFFERENTIAL COMMENT 1
[2022-10-07 07:36] LABS: THYROID STIMULATING HORMONE 0.982 mIU/mL (0.358-3.740)
[2022-10-07 07:40] LABS: CALCIUM 9.2 mg/dL (8.5-10.1); CREATININE 1.1 mg/dL (0.6-1.3); POTASSIUM 3.5 mmol/L (3.5-5.1)
[2022-10-07 08:00] VITALS: BP 162/73; TEMP 98.7; O2SAT 93
[2022-10-07 08:19] LABS: ALBUMIN 3.2 g/dL (3.4-5.0); BILIRUBIN,TOTAL 0.4 mg/dL (0.2-1.0); MAGNESIUM 1.9 mg/dL (1.8-2.4); PHOSPHOROUS 3.4 mg/dL (2.5-4.9)
[2022-10-07] MEDS: PIPERACILLIN SODIUM/TAZOBACTAM 3.375 G in IV DEXTROSE 5% 100 ML IV SCH ×2 (08:50→14:16)
[2022-10-07] MEDS ORDERED: CLONAZEPAM 0.5 MG TABLET PO PRN (10:00)
[2022-10-07] MEDS ORDERED: LOSARTAN POTASSIUM 50 MG TABLET PO SCH (11:00)
[2022-10-07 11:30] VITALS: BP 162/73; TEMP 99.4; O2SAT 93
[2022-10-07] MEDS: APIXABAN 5 MG TABLET PO SCH ×2 (11:32→20:34)
[2022-10-07 12:37] LABS: *BILIRUBIN,URIN 1+ (NEGATIVE); *CLARITY,URINE TURBID (CLEAR); *COLOR,URINE YELLOW (YELLOW); *KETONES,URINE 2+ (NEGATIVE); *PROTEIN,URINE 2+ (NEGATIVE); *UROBILINOGEN,URINE 0.2 E.U./dl (NORMAL); LEUKOCYTE ESTERASE ,URINE NEGATIVE (NEGATIVE); NITRITE, URINE NEGATIVE (NEGATIVE); PH,URINE 5.5 (5.0-8.0); UGLUCOSE NEGATIVE (NEGATIVE)
[2022-10-07 12:51] LABS: *BLOOD, URINE TRACE (NEGATIVE)
[2022-10-07] MEDS ORDERED: PIPERACILLIN SODIUM/TAZOBACTAM 3.375 G in IV DEXTROSE 5% 50 ML IV SCH (14:00)
[2022-10-07] MEDS ORDERED: LOSA50TA39 PO (14:04)
[2022-10-07] MEDS ORDERED: AMLO-212 PO (14:06)
[2022-10-07 14:15] LABS: RBC,URINE 0-3 /HPF (0-3); URINE AMORPHOUS PHOSPHATES MANY /HPF; WBC,URINE 0-3 /HPF (0-3)
[2022-10-07 14:16] LABS: BACTERIA,URINE FEW /HPF (NONE SEEN); MUCUS,URINE FEW /LPF (0-FEW)
[2022-10-07] MEDS: GABAPENTIN 100 MG CAPSULE PO SCH (14:16)
[2022-10-07 15:30] VITALS: BP 144/60; TEMP 98.6; O2SAT 93
[2022-10-07] MEDS: ATORVASTATIN 10 MG TABLET PO SCH (20:32)
[2022-10-07] MEDS: DOCUSATE SODIUM 100 MG CAPSULE PO SCH (20:33)
[2022-10-07] MEDS: DEXAMETHASONE SOD PHOSPHATE 4 MG INJ IV SCH (20:33)
[2022-10-07] MEDS ORDERED: ATORVASTATIN 10 MG TABLET PO SCH (21:00)
[2022-10-07] MEDS ORDERED: CEFEPIME HCL 1 G VIAL ONE (21:20)
[2022-10-07] MEDS: CEFEPIME HCL 1 G in IV DEXTROSE 5% 50 ML IV SCH (21:50)
[2022-10-07 23:54] VITALS: BP 151/77; TEMP 98; O2SAT 98
[2022-10-08 05:01] VITALS: BP 133/98; TEMP 98; O2SAT 98
[2022-10-08] MEDS: PANTOPRAZOLE SODIUM 40 MG TABLET.DR PO SCH (06:35)
[2022-10-08] MEDS: LEVOTHYROXINE SODIUM 75 MCG TABLET PO SCH (06:35)
[2022-10-08 06:55] LABS: BASOPHILS % (AUTO) 0.5 % (0.0-2.0); HEMATOCRIT 44.7 % (31.2-41.9); HEMOGLOBIN 15.1 g/dL (10.9-14.3); LYMPHOCYTES % (AUTO) 12.6 % (20.5-51.5); MEAN CORPUSCULAR HEMOGLOBIN 30.6 uug (24.7-32.8); MEAN CORPUSCULAR HGB CONC 34 g/dL (32.3-35.6); MEAN CORPUSCULAR VOLUME 90.7 fL (75.5-95.3); MONOCYTES # (AUTO) 0.1 K/uL (0.1-1.30); MONOCYTES % (AUTO) 1.7 % (0.0-11.0); NEUTROPHILS # (AUTO) 6.7 K/uL (1.8-8.9); NEUTROPHILS % (AUTO) 85.2 % (38.5-71.5); PLATELET COUNT (AUTO) 175 K/uL (179-408); RED BLOOD CELL COUNT(AUTO) 4.93 MIL/uL (3.63-4.92); RED CELL DISTRIBUTION WIDTH 15.5 % (12.3-17.7); WHITE BLOOD COUNT (AUTO) 7.8 K/uL (3.8-11.8)
[2022-10-08 07:09] LABS: DIFFERENTIAL COMMENT 1
[2022-10-08 07:36] LABS: ALANINE AMINOTRANSFERASE 15 U/L (14-59); ALKALINE PHOSPHATASE 97 U/L (50-136); ASPARTATE AMINOTRANSFERASE 20 U/L (15-37); BILIRUBIN,TOTAL 0.4 mg/dL (0.2-1.0); CALCIUM 9.1 mg/dL (8.5-10.1); CARBON DIOXIDE 26 mmol/L (21-32); CHLORIDE 102 mmol/L (98-107); CREATININE 0.9 mg/dL (0.6-1.3); FERRITIN 133 ng/mL (8-252); GLUCOSE 156 mg/dL (74-106); LACTATE DEHYDROGENASE 208 U/L (81-234); MAGNESIUM 2.1 mg/dL (1.8-2.4); NT-PRO BNP 3032 pg/mL (0-125); PHOSPHOROUS 3.9 mg/dL (2.5-4.9); SODIUM SERUM 137 mmol/L (136-145); TOTAL PROTEIN, SERUM 7.9 g/dL (6.4-8.2); UREA NITROGEN, BLOOD 16 mg/dL (7-18)
[2022-10-08 08:00] VITALS: BP 118/72; TEMP 98.6
[2022-10-08] MEDS: ESCITALOPRAM OXALATE 10 MG TABLET PO SCH (08:40)
[2022-10-08] MEDS: GABAPENTIN 100 MG CAPSULE PO SCH (08:40)
[2022-10-08] MEDS ORDERED: LOSARTAN POTASSIUM 50 MG TABLET PO SCH (09:00)
[2022-10-08] MEDS: APIXABAN 5 MG TABLET PO SCH ×2 (09:00→20:19)
[2022-10-08] MEDS: CEFEPIME HCL 1 G in IV DEXTROSE 5% 50 ML IV SCH ×2 (10:56→21:05)
[2022-10-08 16:00] VITALS: BP 165/79; TEMP 97.6; O2SAT 98
[2022-10-08 20:00] VITALS: BP 145/74; TEMP 97.5; O2SAT 97
[2022-10-08] MEDS: DOCUSATE SODIUM 100 MG CAPSULE PO SCH (20:19)
[2022-10-08] MEDS: ATORVASTATIN 10 MG TABLET PO SCH (20:19)
[2022-10-08] MEDS: DEXAMETHASONE SOD PHOSPHATE 4 MG INJ IV SCH (20:47)
[2022-10-09] VITALS (7 sets, daily range): BP systolic 147–175; BP diastolic 68–88; TEMP 97.2–98.4; O2SAT 94–99
[2022-10-09] MEDS ORDERED: hydrALAZINE HCL 20 MG/1 ML VIAL IV PRN (04:30)
[2022-10-09] MEDS: PANTOPRAZOLE SODIUM 40 MG TABLET.DR PO SCH (06:27)
[2022-10-09] MEDS: LEVOTHYROXINE SODIUM 75 MCG TABLET PO SCH (06:27)
[2022-10-09] MEDS: LOSARTAN POTASSIUM 50 MG TABLET PO SCH ×2 (09:28→16:08)
[2022-10-09] MEDS: GABAPENTIN 100 MG CAPSULE PO SCH (09:28)
[2022-10-09] MEDS: ESCITALOPRAM OXALATE 10 MG TABLET PO SCH (09:29)
[2022-10-09] MEDS: APIXABAN 5 MG TABLET PO SCH ×2 (09:29→20:49)
[2022-10-09] MEDS: CEFEPIME HCL 1 G in IV DEXTROSE 5% 50 ML IV SCH (09:30)
[2022-10-09] MEDS: GUAIFENESIN/DEXTROMETHORPHAN 5 ML UDC PO PRN (09:30)
[2022-10-09] MEDS: DOCUSATE SODIUM 100 MG CAPSULE PO SCH (20:49)
[2022-10-09] MEDS: ATORVASTATIN 10 MG TABLET PO SCH (20:52)
[2022-10-10] VITALS (7 sets, daily range): BP systolic 117–173; BP diastolic 58–79; TEMP 97.8–98.4; O2SAT 95–98
[2022-10-10] MEDS: LEVOTHYROXINE SODIUM 75 MCG TABLET PO SCH (06:06)
[2022-10-10] MEDS: PANTOPRAZOLE SODIUM 40 MG TABLET.DR PO SCH (06:06)
[2022-10-10 06:43] LABS: BASOPHILS % (AUTO) 0.2 % (0.0-2.0); HEMATOCRIT 41.2 % (31.2-41.9); HEMOGLOBIN 13.6 g/dL (10.9-14.3); LYMPHOCYTES # (AUTO) 1.4 K/uL (0.8-4.8); LYMPHOCYTES % (AUTO) 13.1 % (20.5-51.5); MEAN CORPUSCULAR HEMOGLOBIN 29.5 uug (24.7-32.8); MEAN CORPUSCULAR HGB CONC 33 g/dL (32.3-35.6); MEAN CORPUSCULAR VOLUME 89.4 fL (75.5-95.3); MONOCYTES # (AUTO) 0.6 K/uL (0.1-1.30); MONOCYTES % (AUTO) 5.4 % (0.0-11.0); NEUTROPHILS # (AUTO) 8.9 K/uL (1.8-8.9); NEUTROPHILS % (AUTO) 81.3 % (38.5-71.5); PLATELET COUNT (AUTO) 207 K/uL (179-408); RED BLOOD CELL COUNT(AUTO) 4.61 MIL/uL (3.63-4.92); RED CELL DISTRIBUTION WIDTH 15.4 % (12.3-17.7); WHITE BLOOD COUNT (AUTO) 10.9 K/uL (3.8-11.8)
[2022-10-10 07:00] LABS: DIFFERENTIAL COMMENT 1
[2022-10-10 07:23] LABS: CALCIUM 8.6 mg/dL (8.5-10.1); CARBON DIOXIDE 27 mmol/L (21-32); CHLORIDE 103 mmol/L (98-107); CREATININE 1.1 mg/dL (0.6-1.3); GLUCOSE 110 mg/dL (74-106); MAGNESIUM 1.9 mg/dL (1.8-2.4); PHOSPHOROUS 2.7 mg/dL (2.5-4.9); SODIUM SERUM 137 mmol/L (136-145); UREA NITROGEN, BLOOD 32 mg/dL (7-18)
[2022-10-10] MEDS: LOSARTAN POTASSIUM 50 MG TABLET PO SCH ×2 (09:23→16:59)
[2022-10-10] MEDS: GABAPENTIN 100 MG CAPSULE PO SCH (09:23)
[2022-10-10] MEDS: ESCITALOPRAM OXALATE 10 MG TABLET PO SCH (09:23)
[2022-10-10] MEDS: APIXABAN 5 MG TABLET PO SCH ×2 (09:25→20:09)
[2022-10-10] MEDS: GUAIFENESIN/DEXTROMETHORPHAN 5 ML UDC PO PRN (17:03)
[2022-10-10] MEDS: ATORVASTATIN 10 MG TABLET PO SCH (20:28)
[2022-10-10] MEDS: DOCUSATE SODIUM 100 MG CAPSULE PO SCH (20:28)
[2022-10-11 04:20] VITALS: BP 144/69; TEMP 98.3; O2SAT 98
[2022-10-11] MEDS: LEVOTHYROXINE SODIUM 75 MCG TABLET PO SCH (06:15)
[2022-10-11] MEDS: PANTOPRAZOLE SODIUM 40 MG TABLET.DR PO SCH (06:15)
[2022-10-11 07:02] LABS: BASOPHILS % (AUTO) 0.6 % (0.0-2.0); EOSINOPHILS # (AUTO) 0.2 K/uL (0.0-0.7); EOSINOPHILS % (AUTO) 3.2 % (0.0-7.0); HEMATOCRIT 41.6 % (31.2-41.9); HEMOGLOBIN 13.7 g/dL (10.9-14.3); LYMPHOCYTES # (AUTO) 2.3 K/uL (0.8-4.8); LYMPHOCYTES % (AUTO) 31.1 % (20.5-51.5); MEAN CORPUSCULAR HEMOGLOBIN 29.5 uug (24.7-32.8); MEAN CORPUSCULAR HGB CONC 33 g/dL (32.3-35.6); MEAN CORPUSCULAR VOLUME 89.7 fL (75.5-95.3); MONOCYTES # (AUTO) 0.7 K/uL (0.1-1.30); MONOCYTES % (AUTO) 9.7 % (0.0-11.0); NEUTROPHILS % (AUTO) 55.4 % (38.5-71.5); PLATELET COUNT (AUTO) 192 K/uL (179-408); RED BLOOD CELL COUNT(AUTO) 4.64 MIL/uL (3.63-4.92); RED CELL DISTRIBUTION WIDTH 15.4 % (12.3-17.7); WHITE BLOOD COUNT (AUTO) 7.3 K/uL (3.8-11.8)
[2022-10-11 07:19] LABS: CALCIUM 8.2 mg/dL (8.5-10.1); CARBON DIOXIDE 25 mmol/L (21-32); CHLORIDE 106 mmol/L (98-107); CREATININE 0.9 mg/dL (0.6-1.3); GLUCOSE 86 mg/dL (74-106); MAGNESIUM 1.8 mg/dL (1.8-2.4); PHOSPHOROUS 3.1 mg/dL (2.5-4.9); POTASSIUM 3.8 mmol/L (3.5-5.1); SODIUM SERUM 138 mmol/L (136-145); UREA NITROGEN, BLOOD 25 mg/dL (7-18)
[2022-10-11 07:21] LABS: DIFFERENTIAL COMMENT 1
[2022-10-11 08:00] VITALS: BP 148/81; TEMP 97.6; O2SAT 97
[2022-10-11] MEDS: LOSARTAN POTASSIUM 50 MG TABLET PO SCH ×2 (09:16→17:11)
[2022-10-11] MEDS: GABAPENTIN 100 MG CAPSULE PO SCH (09:16)
[2022-10-11] MEDS: ESCITALOPRAM OXALATE 10 MG TABLET PO SCH (09:16)
[2022-10-11] MEDS: APIXABAN 5 MG TABLET PO SCH ×2 (09:18→21:26)
[2022-10-11 11:57] VITALS: BP 152/64; TEMP 97.5; O2SAT 95
[2022-10-11 17:01] VITALS: BP 159/58; TEMP 97.6; O2SAT 97
[2022-10-11 20:00] VITALS: BP 152/61; TEMP 98.3; O2SAT 96
[2022-10-11] MEDS: DOCUSATE SODIUM 100 MG CAPSULE PO SCH (21:25)
[2022-10-11] MEDS: ATORVASTATIN 10 MG TABLET PO SCH (21:25)
[2022-10-12 05:14] VITALS: BP 149/63; TEMP 97.5; O2SAT 97
[2022-10-12] MEDS: PANTOPRAZOLE SODIUM 40 MG TABLET.DR PO SCH ×2 (06:15→06:41)
[2022-10-12] MEDS: LEVOTHYROXINE SODIUM 75 MCG TABLET PO SCH (06:15)
[2022-10-12 06:44] LABS: BASOPHILS % (AUTO) 0.4 % (0.0-2.0); EOSINOPHILS # (AUTO) 0.5 K/uL (0.0-0.7); HEMATOCRIT 41.7 % (31.2-41.9); HEMOGLOBIN 13.7 g/dL (10.9-14.3); LYMPHOCYTES # (AUTO) 2.5 K/uL (0.8-4.8); LYMPHOCYTES % (AUTO) 31.2 % (20.5-51.5); MEAN CORPUSCULAR HEMOGLOBIN 29.4 uug (24.7-32.8); MEAN CORPUSCULAR HGB CONC 33 g/dL (32.3-35.6); MEAN CORPUSCULAR VOLUME 89.4 fL (75.5-95.3); MONOCYTES # (AUTO) 0.8 K/uL (0.1-1.30); MONOCYTES % (AUTO) 10.2 % (0.0-11.0); NEUTROPHILS # (AUTO) 4.2 K/uL (1.8-8.9); NEUTROPHILS % (AUTO) 52.2 % (38.5-71.5); PLATELET COUNT (AUTO) 187 K/uL (179-408); RED BLOOD CELL COUNT(AUTO) 4.67 MIL/uL (3.63-4.92); RED CELL DISTRIBUTION WIDTH 15.4 % (12.3-17.7)
[2022-10-12 06:50] LABS: CARBON DIOXIDE 28 mmol/L (21-32); CHLORIDE 104 mmol/L (98-107); CREATININE 0.9 mg/dL (0.6-1.3); GLUCOSE 93 mg/dL (74-106); MAGNESIUM 1.6 mg/dL (1.8-2.4); PHOSPHOROUS 2.6 mg/dL (2.5-4.9); POTASSIUM 3.5 mmol/L (3.5-5.1); SODIUM SERUM 138 mmol/L (136-145); UREA NITROGEN, BLOOD 19 mg/dL (7-18)
[2022-10-12 06:52] LABS: DIFFERENTIAL COMMENT 1
[2022-10-12 08:30] VITALS: BP 142/65; TEMP 97.5; O2SAT 97
[2022-10-12 09:00] VITALS: BP 148/78
[2022-10-12] MEDS ORDERED: MAGNESIUM OXIDE 400 MG TABLET PO ONE (09:00)
[2022-10-12] MEDS: LOSARTAN POTASSIUM 50 MG TABLET PO SCH (09:00)
[2022-10-12] MEDS: APIXABAN 5 MG TABLET PO SCH (09:00)
[2022-10-12] MEDS: GABAPENTIN 100 MG CAPSULE PO SCH (10:06)
== END 2022-10-12 12:00 | DRG 177 ==
LOC: ER 03:21 → TELE3 21:04 → MEDSURG3 10-08 10:36 → TELE3 10-09 04:53 → MEDSURG3 10-09 11:21
PROVIDERS: ADMIT Internal Medicine; ATTEND Internal Medicine
PROC: 05HC33Z Insertion of Infusion Device into Left Basilic Vein, Percutaneous Approach (ICD-10-PCS; principal; 2022-10-06)
PROC: 02HV33Z Insertion of Infusion Device into Superior Vena Cava, Percutaneous Approach (ICD-10-PCS; 2022-10-07)
DX: U07.1 COVID-19 (principal); J12.82 Pneumonia due to coronavirus disease 2019; J18.9 Pneumonia, unspecified organism; I48.20 Chronic atrial fibrillation, unspecified; A08.39 Other viral enteritis; E44.1 Mild protein-calorie malnutrition; R09.02 Hypoxemia; E78.5 Hyperlipidemia, unspecified; E03.9 Hypothyroidism, unspecified; Z79.890 Hormone replacement therapy; F41.9 Anxiety disorder, unspecified; Z90.710 Acquired absence of both cervix and uterus; Z88.1 Allergy status to other antibiotic agents; E88.09 Other disorders of plasma-protein metabolism, not elsewhere classified; E66.9 Obesity, unspecified; Z68.34 Body mass index [BMI] 34.0-34.9, adult; Z91.81 History of falling; R26.89 Other abnormalities of gait and mobility; K44.9 Diaphragmatic hernia without obstruction or gangrene; R79.89 Other specified abnormal findings of blood chemistry; K40.20 Bilateral inguinal hernia, without obstruction or gangrene, not specified as recurrent; K57.30 Diverticulosis of large intestine without perforation or abscess without bleeding; M41.9 Scoliosis, unspecified; M19.90 Unspecified osteoarthritis, unspecified site; G31.9 Degenerative disease of nervous system, unspecified; I35.8 Other nonrheumatic aortic valve disorders; I70.0 Atherosclerosis of aorta; I11.9 Hypertensive heart disease without heart failure; Z79.01 Long term (current) use of anticoagulants; Z79.899 Other long term (current) drug therapy; F32.A Depression, unspecified
CPT/HCPCS: 36415; 36569; 71045; 83605; 83615; 83690; 83735; 84100; 84443; 84484; 85025; 85610; 86140; 93005; 93307; A4663; G0378; J0360; J0692; J1100; J2405; J2543; J7040; Q0162; Q9967

== ENCOUNTER 2023-08-09 13:44 | Inpatient (IN) | payer MEDICARE ==
[~2023-08-09] VITALS: Ht 157.5 cm; Wt 82.6 kg
[~2023-08-09 13:44] MED LIST changes: +ACET325C7 PO; +AMLO5TAB4 PO; +BISA10SU61 RC; +CRAN500T3 PO; +DOCU100C36 PO; +FAMO20TA8 PO; +FOLI1TAB27 PO; -GABA-532 PO; -HYDR-3980 PO; +MAGN400O6 PO; +NA P133E RC; +ONDA4TAB5 PO; -PROC10TA29 PO
[2023-08-09 15:21] LABS: BASOPHILS # (AUTO) 0.1 K/UL (0.0-0.2); BASOPHILS % (AUTO) 1.2 % (0.0-2.0); EOSINOPHILS # (AUTO) 0.3 K/uL (0.0-0.7); EOSINOPHILS % (AUTO) 3.3 % (0.0-7.0); HEMATOCRIT 44.5 % (31.2-41.9); HEMOGLOBIN 14.4 g/dL (10.9-14.3); LYMPHOCYTES % (AUTO) 23.5 % (20.5-51.5); MEAN CORPUSCULAR HEMOGLOBIN 29.8 uug (24.7-32.8); MEAN CORPUSCULAR HGB CONC 32 g/dL (32.3-35.6); MONOCYTES # (AUTO) 0.6 K/uL (0.1-1.30); MONOCYTES % (AUTO) 7.3 % (0.0-11.0); NEUTROPHILS # (AUTO) 5.5 K/uL (1.8-8.9); NEUTROPHILS % (AUTO) 64.7 % (38.5-71.5); PLATELET COUNT (AUTO) 148 K/uL (179-408); RED BLOOD CELL COUNT(AUTO) 4.84 MIL/uL (3.63-4.92); RED CELL DISTRIBUTION WIDTH 15.5 % (12.3-17.7); WHITE BLOOD COUNT (AUTO) 8.5 K/uL (3.8-11.8)
[2023-08-09 15:30] LABS: AMMONIA 12 umol/L (11-32); CALCIUM 8.9 mg/dL (8.5-10.1); CARBON DIOXIDE 22 mmol/L (21-32); CHLORIDE 108 mmol/L (98-107); CREATININE 0.7 mg/dL (0.6-1.3); GLUCOSE 96 mg/dL (74-106); POTASSIUM 4.2 mmol/L (3.5-5.1); SODIUM SERUM 141 mmol/L (136-145); UREA NITROGEN, BLOOD 27 mg/dL (7-18)
[2023-08-09 15:31] LABS: DIFFERENTIAL COMMENT 1
[2023-08-09 15:39] LABS: ALANINE AMINOTRANSFERASE 13 U/L (14-59); ALBUMIN 2.8 g/dL (3.4-5.0); ALKALINE PHOSPHATASE 108 U/L (50-136); ASPARTATE AMINOTRANSFERASE 11 U/L (15-37); BILIRUBIN,DIRECT 0.1 mg/dL (0.0-0.2); BILIRUBIN,TOTAL 0.3 mg/dL (0.2-1.0); TOTAL PROTEIN, SERUM 6.8 g/dL (6.4-8.2)
[2023-08-09 15:40] LABS: ACETAMINOPHEN < 2.0 ug/mL (10-30)
[2023-08-09 15:48] LABS: ETHANOL < 3 MG/DL (0-10)
[2023-08-09 17:24] LABS: *BILIRUBIN,URIN NEGATIVE (NEGATIVE); *BLOOD, URINE NEGATIVE (NEGATIVE); *CLARITY,URINE CLEAR (CLEAR); *COLOR,URINE LIGHT YELLOW (YELLOW); *KETONES,URINE NEGATIVE (NEGATIVE); *PROTEIN,URINE NEGATIVE (NEGATIVE); *UROBILINOGEN,URINE 0.2 E.U./dl (NORMAL); LEUKOCYTE ESTERASE ,URINE TRACE (NEGATIVE); NITRITE, URINE NEGATIVE (NEGATIVE); UGLUCOSE NEGATIVE (NEGATIVE)
[2023-08-09 18:20] LABS: *AMPHETAMINE, URINE NEGATIVE (NEGATIVE); *BARBITURATE, URINE NEGATIVE (NEGATIVE); *BENZODIAZEPINE, URINE NEGATIVE (NEGATIVE); *CANNABINOID, URINE NEGATIVE (NEGATIVE); *COCCAINE, URINE NEGATIVE (NEGATIVE); *OPIATE, URINE NEGATIVE (NEGATIVE); *PHENCYCLIDINE SCREEN,URINE NEGATIVE (NEGATIVE); FENTANYL, URINE NEGATIVE (NEGATIVE)
[2023-08-09 18:21] LABS: BACTERIA,URINE NONE SEEN /HPF (NONE SEEN); RBC,URINE NONE SEEN /HPF (0-3); SQUAMOUS EPITHELIAL CELL,UR FEW /HPF (NONE SEEN); WBC,URINE 0-3 /HPF (0-3)
[2023-08-09 18:55] VITALS: BP 191/75; TEMP 97.7; O2SAT 98
[2023-08-09] MEDS: IV NS 1000 ML 1,000 ML IV PRN (19:51)
[2023-08-09] MEDS: hydrALAZINE HCL 20 MG/1 ML VIAL IV PRN (21:12)
[2023-08-10] VITALS (9 sets, daily range): BP systolic 129–172; BP diastolic 60–84; TEMP 97.3–98.4; O2SAT 96–99
[2023-08-10 06:27] LABS: BASOPHILS # (AUTO) 0.1 K/UL (0.0-0.2); EOSINOPHILS # (AUTO) 0.3 K/uL (0.0-0.7); EOSINOPHILS % (AUTO) 4.5 % (0.0-7.0); HEMATOCRIT 45.3 % (31.2-41.9); HEMOGLOBIN 14.8 g/dL (10.9-14.3); LYMPHOCYTES # (AUTO) 2.2 K/uL (0.8-4.8); LYMPHOCYTES % (AUTO) 30.1 % (20.5-51.5); MEAN CORPUSCULAR HEMOGLOBIN 29.7 uug (24.7-32.8); MEAN CORPUSCULAR HGB CONC 33 g/dL (32.3-35.6); MEAN CORPUSCULAR VOLUME 90.6 fL (75.5-95.3); MONOCYTES # (AUTO) 0.6 K/uL (0.1-1.30); MONOCYTES % (AUTO) 8.6 % (0.0-11.0); NEUTROPHILS # (AUTO) 4.1 K/uL (1.8-8.9); NEUTROPHILS % (AUTO) 55.8 % (38.5-71.5); PLATELET COUNT (AUTO) 172 K/uL (179-408); RED BLOOD CELL COUNT(AUTO) 4.99 MIL/uL (3.63-4.92); RED CELL DISTRIBUTION WIDTH 15.3 % (12.3-17.7); WHITE BLOOD COUNT (AUTO) 7.4 K/uL (3.8-11.8)
[2023-08-10 06:46] LABS: CREATININE 0.8 mg/dL (0.6-1.3); MAGNESIUM 1.9 mg/dL (1.8-2.4); PHOSPHOROUS 3.4 mg/dL (2.5-4.9); POTASSIUM 3.7 mmol/L (3.5-5.1)
[2023-08-10 06:59] LABS: DIFFERENTIAL COMMENT 1
[2023-08-10] MEDS: ENOXAPARIN SODIUM 40 MG/0.4 ML DISP.SYRIN SQ SCH (08:27)
[2023-08-10] MEDS: ACETAMINOPHEN 325 MG TABLET PO PRN (08:33)
[2023-08-10] MEDS ORDERED: APIXABAN 5 MG TABLET PO SCH (12:45)
[2023-08-10] MEDS: LOSARTAN POTASSIUM 50 MG TABLET PO SCH (13:20)
[2023-08-10] MEDS: LEVOTHYROXINE SODIUM 75 MCG TABLET PO SCH (13:20)
[2023-08-10] MEDS: PANTOPRAZOLE SODIUM 40 MG TABLET.DR PO SCH (13:20)
[2023-08-10] MEDS: AMLODIPINE 5 MG TABLET PO SCH (13:20)
[2023-08-10] MEDS ORDERED: NEUTRA PHOS PACKET PO ONE (14:00)
[2023-08-10] MEDS: ONDANSETRON 4 MG/2 ML VIAL IV PRN (19:30)
[2023-08-10] MEDS: ATORVASTATIN 40 MG TABLET PO SCH (21:34)
[2023-08-10] MEDS: APIXABAN 5 MG TABLET PO SCH (21:34)
[2023-08-11] VITALS (8 sets, daily range): BP systolic 109–160; BP diastolic 42–70; TEMP 97.9–98.4; O2SAT 96–98
[2023-08-11] MEDS: LEVOTHYROXINE SODIUM 75 MCG TABLET PO SCH (06:15)
[2023-08-11] MEDS: PANTOPRAZOLE SODIUM 40 MG TABLET.DR PO SCH (06:16)
[2023-08-11] MEDS: ESCITALOPRAM OXALATE 10 MG TABLET PO SCH (08:17)
[2023-08-11] MEDS: hydrALAZINE HCL 50 MG TABLET PO SCH (08:18)
[2023-08-11 10:50] LABS: BASOPHILS % (AUTO) 0.6 % (0.0-2.0); EOSINOPHILS # (AUTO) 0.2 K/uL (0.0-0.7); EOSINOPHILS % (AUTO) 1.8 % (0.0-7.0); HEMATOCRIT 41.4 % (31.2-41.9); HEMOGLOBIN 13.2 g/dL (10.9-14.3); LYMPHOCYTES # (AUTO) 1.6 K/uL (0.8-4.8); LYMPHOCYTES % (AUTO) 18.3 % (20.5-51.5); MEAN CORPUSCULAR HEMOGLOBIN 29.2 uug (24.7-32.8); MEAN CORPUSCULAR HGB CONC 32 g/dL (32.3-35.6); MEAN CORPUSCULAR VOLUME 91.3 fL (75.5-95.3); MONOCYTES # (AUTO) 0.6 K/uL (0.1-1.30); MONOCYTES % (AUTO) 7.4 % (0.0-11.0); NEUTROPHILS # (AUTO) 6.2 K/uL (1.8-8.9); NEUTROPHILS % (AUTO) 71.9 % (38.5-71.5); PLATELET COUNT (AUTO) 171 K/uL (179-408); RED BLOOD CELL COUNT(AUTO) 4.54 MIL/uL (3.63-4.92); RED CELL DISTRIBUTION WIDTH 15.3 % (12.3-17.7); WHITE BLOOD COUNT (AUTO) 8.7 K/uL (3.8-11.8)
[2023-08-11 10:53] LABS: DIFFERENTIAL COMMENT 1
[2023-08-11 10:59] LABS: CALCIUM 8.8 mg/dL (8.5-10.1); CARBON DIOXIDE 23 mmol/L (21-32); CHLORIDE 109 mmol/L (98-107); CREATININE 0.9 mg/dL (0.6-1.3); GLUCOSE 140 mg/dL (74-106); POTASSIUM 3.6 mmol/L (3.5-5.1); SODIUM SERUM 141 mmol/L (136-145); UREA NITROGEN, BLOOD 17 mg/dL (7-18)
[2023-08-12 00:50] VITALS: BP 145/54; TEMP 97.9; O2SAT 97
[2023-08-12 04:36] VITALS: BP 149/65; TEMP 98.2; O2SAT 97
[2023-08-12 05:00] VITALS: O2SAT 96
[2023-08-12 07:05] LABS: BASOPHILS # (AUTO) 0.1 K/UL (0.0-0.2); BASOPHILS % (AUTO) 1.3 % (0.0-2.0); EOSINOPHILS # (AUTO) 0.3 K/uL (0.0-0.7); EOSINOPHILS % (AUTO) 4.7 % (0.0-7.0); HEMATOCRIT 38.8 % (31.2-41.9); HEMOGLOBIN 12.4 g/dL (10.9-14.3); LYMPHOCYTES # (AUTO) 2.1 K/uL (0.8-4.8); LYMPHOCYTES % (AUTO) 30.1 % (20.5-51.5); MEAN CORPUSCULAR HEMOGLOBIN 29.1 uug (24.7-32.8); MEAN CORPUSCULAR HGB CONC 32 g/dL (32.3-35.6); MEAN CORPUSCULAR VOLUME 90.9 fL (75.5-95.3); MONOCYTES # (AUTO) 0.5 K/uL (0.1-1.30); MONOCYTES % (AUTO) 7.7 % (0.0-11.0); NEUTROPHILS # (AUTO) 3.9 K/uL (1.8-8.9); NEUTROPHILS % (AUTO) 56.2 % (38.5-71.5); PLATELET COUNT (AUTO) 160 K/uL (179-408); RED BLOOD CELL COUNT(AUTO) 4.27 MIL/uL (3.63-4.92); RED CELL DISTRIBUTION WIDTH 15.1 % (12.3-17.7); WHITE BLOOD COUNT (AUTO) 6.9 K/uL (3.8-11.8)
[2023-08-12 07:13] LABS: DIFFERENTIAL COMMENT 1
[2023-08-12 07:37] LABS: CALCIUM 8.5 mg/dL (8.5-10.1); CARBON DIOXIDE 24 mmol/L (21-32); CHLORIDE 110 mmol/L (98-107); CREATININE 0.9 mg/dL (0.6-1.3); GLUCOSE 88 mg/dL (74-106); MAGNESIUM 1.8 mg/dL (1.8-2.4); PHOSPHOROUS 3.1 mg/dL (2.5-4.9); SODIUM SERUM 143 mmol/L (136-145); UREA NITROGEN, BLOOD 19 mg/dL (7-18)
[2023-08-12 08:00] VITALS: BP 146/57; TEMP 98.7; O2SAT 95
[2023-08-12 11:44] VITALS: BP 135/46; TEMP 97.8; O2SAT 96
[2023-08-12 12:00] VITALS: BP 132/50; TEMP 98; O2SAT 96
[2023-08-12] MEDS ORDERED: HYDR50TA68 PO ×2 (12:32→13:57)
== END 2023-08-12 14:15 | disposition home health service (06) | DRG 641 ==
LOC: ER 13:44 → TELE3 18:29 → MEDSURG3 08-12 10:07
PROVIDERS: ADMIT Nurse Practitioner Acute Care; ATTEND Nurse Practitioner Acute Care
PROC: 05HB33Z Insertion of Infusion Device into Right Basilic Vein, Percutaneous Approach (ICD-10-PCS; principal; 2023-08-09)
DX: E86.0 Dehydration (principal); E44.0 Moderate protein-calorie malnutrition; I48.20 Chronic atrial fibrillation, unspecified; I16.0 Hypertensive urgency; Z79.01 Long term (current) use of anticoagulants; E03.9 Hypothyroidism, unspecified; E78.5 Hyperlipidemia, unspecified; E88.09 Other disorders of plasma-protein metabolism, not elsewhere classified; K44.9 Diaphragmatic hernia without obstruction or gangrene; M15.9 Polyosteoarthritis, unspecified; Z86.16 Personal history of COVID-19; Z79.890 Hormone replacement therapy; Z79.899 Other long term (current) drug therapy; Z87.01 Personal history of pneumonia (recurrent); Z88.1 Allergy status to other antibiotic agents; Z90.710 Acquired absence of both cervix and uterus; G93.89 Other specified disorders of brain; I11.9 Hypertensive heart disease without heart failure; I67.2 Cerebral atherosclerosis
CPT/HCPCS: 36415; 70450; 71045; 83605; 83735; 84100; 84484; 85025; 85730; 87040; 93005; 93307; A4606; A4663; G0378; G0480; J0360; J1650; J2405; J7040

== ENCOUNTER 2024-03-09 17:37 | Inpatient (IN) | payer MEDICARE ==
[~2024-03-09] VITALS: Ht 160 cm; Wt 92.5 kg
[~2024-03-09 17:37] MED LIST changes: -BISA10SU61 RC; -CLON0.5T4 PO; -CRAN500T3 PO; -DOCU100C36 PO; -FAMO20TA8 PO; -FOLI1TAB27 PO; +HYDR50TA68 PO; -MAGN400O6 PO; -NA P133E RC; -ONDA4TAB5 PO
[2024-03-09 19:22] LABS: BASOPHILS # (AUTO) 0.1 K/UL (0.0-0.2); BASOPHILS % (AUTO) 0.9 % (0.0-2.0); DIFFERENTIAL COMMENT 0; EOSINOPHILS # (AUTO) 0.4 K/uL (0.0-0.7); EOSINOPHILS % (AUTO) 5.3 % (0.0-7.0); HEMATOCRIT 35.4 % (31.2-41.9); HEMOGLOBIN 11.6 g/dL (10.9-14.3); LYMPHOCYTES # (AUTO) 1.5 K/uL (0.8-4.8); LYMPHOCYTES % (AUTO) 21.8 % (20.5-51.5); MEAN CORPUSCULAR HEMOGLOBIN 29.7 uug (24.7-32.8); MEAN CORPUSCULAR HGB CONC 33 g/dL (32.3-35.6); MEAN CORPUSCULAR VOLUME 90.6 fL (75.5-95.3); MONOCYTES # (AUTO) 0.5 K/uL (0.1-1.30); MONOCYTES % (AUTO) 7.1 % (0.0-11.0); NEUTROPHILS # (AUTO) 4.4 K/uL (1.8-8.9); NEUTROPHILS % (AUTO) 64.9 % (38.5-71.5); PLATELET COUNT (AUTO) 234 K/uL (179-408); RED BLOOD CELL COUNT(AUTO) 3.91 MIL/uL (3.63-4.92); RED CELL DISTRIBUTION WIDTH 16.8 % (12.3-17.7); WHITE BLOOD COUNT (AUTO) 6.7 K/uL (3.8-11.8)
[2024-03-09 19:37] LABS: ALANINE AMINOTRANSFERASE 17 U/L (14-59); ALBUMIN 2.8 g/dL (3.4-5.0); ALKALINE PHOSPHATASE 113 U/L (50-136); ASPARTATE AMINOTRANSFERASE 18 U/L (15-37); BILIRUBIN,DIRECT 0.2 mg/dL (0.0-0.2); BILIRUBIN,TOTAL 0.6 mg/dL (0.2-1.0); CALCIUM 8.3 mg/dL (8.5-10.1); CARBON DIOXIDE 24 mmol/L (21-32); CHLORIDE 111 mmol/L (98-107); CREATININE 0.7 mg/dL (0.6-1.3); GLUCOSE 94 mg/dL (74-106); LIPASE 14 U/L (16-77); POTASSIUM 4.2 mmol/L (3.5-5.1); SODIUM SERUM 146 mmol/L (136-145); TOTAL PROTEIN, SERUM 6.6 g/dL (6.4-8.2); UREA NITROGEN, BLOOD 17 mg/dL (7-18)
[2024-03-09] MEDS: IV NORMAL SALINE 1000 ML BAG IV ONE (20:09)
[2024-03-09] MEDS ORDERED: PIPERACILLIN/TAZOBACTAM/D5W 50 ML IV ONE (20:10)
[2024-03-09] MEDS: PIPERACILLIN SODIUM/TAZOBACTAM 3.375 G in IV DEXTROSE 5% 50 ML IV ONE (20:15)
[2024-03-09] MEDS ORDERED: MAGNESIUM HYDROXIDE 30 ML LIQUID UDC PO PRN (22:15)
[2024-03-09] MEDS ORDERED: ONDANSETRON 4 MG/2 ML VIAL IV PRN (22:15)
[2024-03-09 22:43] LABS: *BILIRUBIN,URIN NEGATIVE (NEGATIVE); *BLOOD, URINE NEGATIVE (NEGATIVE); *CLARITY,URINE CLEAR (CLEAR); *COLOR,URINE YELLOW (YELLOW); *KETONES,URINE NEGATIVE (NEGATIVE); *PROTEIN,URINE NEGATIVE (NEGATIVE); *UROBILINOGEN,URINE 0.2 E.U./dl (NORMAL); LEUKOCYTE ESTERASE ,URINE NEGATIVE (NEGATIVE); NITRITE, URINE NEGATIVE (NEGATIVE); PH,URINE 7.5 (5.0-8.0); UGLUCOSE NEGATIVE (NEGATIVE)
[2024-03-09] MEDS: IV D5 1/2 NS 1000 ML 1,000 ML IV SCH (23:03)
[2024-03-10 00:23] VITALS: BP_SYST 159; BP_SYST 189; BP_DIAS 79; BP_DIAS 84; TEMP 97.9; O2SAT 97
[2024-03-10] MEDS ORDERED: PIPERACILLIN/TAZOBACTAM/D5W 50 ML IV ONE (00:26)
[2024-03-10 05:22] VITALS: BP 173/77; TEMP 97.8; O2SAT 97
[2024-03-10] MEDS: PIPERACILLIN SODIUM/TAZOBACTAM 3.375 G in IV DEXTROSE 5% 50 ML IV ONE (05:24)
[2024-03-10] MEDS ORDERED: IV D5 1/2 NS 1000 ML 1,000 ML IV PRN (05:37)
[2024-03-10] MEDS: hydrALAZINE HCL 20 MG/1 ML VIAL IV PRN (06:06)
[2024-03-10 07:23] LABS: BASOPHILS # (AUTO) 0.1 K/UL (0.0-0.2); BASOPHILS % (AUTO) 1.2 % (0.0-2.0); EOSINOPHILS # (AUTO) 0.5 K/uL (0.0-0.7); EOSINOPHILS % (AUTO) 7.1 % (0.0-7.0); HEMATOCRIT 38.3 % (31.2-41.9); HEMOGLOBIN 12.5 g/dL (10.9-14.3); LYMPHOCYTES # (AUTO) 2.1 K/uL (0.8-4.8); LYMPHOCYTES % (AUTO) 27.7 % (20.5-51.5); MEAN CORPUSCULAR HEMOGLOBIN 30.1 uug (24.7-32.8); MEAN CORPUSCULAR HGB CONC 33 g/dL (32.3-35.6); MEAN CORPUSCULAR VOLUME 92.1 fL (75.5-95.3); MONOCYTES # (AUTO) 0.7 K/uL (0.1-1.30); MONOCYTES % (AUTO) 8.9 % (0.0-11.0); NEUTROPHILS # (AUTO) 4.2 K/uL (1.8-8.9); NEUTROPHILS % (AUTO) 55.1 % (38.5-71.5); PLATELET COUNT (AUTO) 237 K/uL (179-408); RED BLOOD CELL COUNT(AUTO) 4.16 MIL/uL (3.63-4.92); RED CELL DISTRIBUTION WIDTH 16.7 % (12.3-17.7); WHITE BLOOD COUNT (AUTO) 7.7 K/uL (3.8-11.8)
[2024-03-10 07:40] LABS: DIFFERENTIAL COMMENT 1
[2024-03-10 07:46] LABS: CALCIUM 8.5 mg/dL (8.5-10.1); CARBON DIOXIDE 25 mmol/L (21-32); CHLORIDE 110 mmol/L (98-107); CREATININE 0.7 mg/dL (0.6-1.3); GLUCOSE 94 mg/dL (74-106); MAGNESIUM 1.8 mg/dL (1.8-2.4); PHOSPHOROUS 2.9 mg/dL (2.5-4.9); POTASSIUM 3.8 mmol/L (3.5-5.1); SODIUM SERUM 146 mmol/L (136-145); UREA NITROGEN, BLOOD 12 mg/dL (7-18)
[2024-03-10 08:24] LABS: THYROID STIMULATING HORMONE 6.328 mIU/mL (0.358-3.740)
[2024-03-10] MEDS: PANTOPRAZOLE SODIUM 40 MG VIAL IV SCH (08:32)
[2024-03-10] MEDS: ACETAMINOPHEN 325 MG TABLET PO PRN (08:33)
[2024-03-10] MEDS: ENOXAPARIN SODIUM 40 MG/0.4 ML DISP.SYRIN SQ SCH (08:34)
[2024-03-10] MEDS ORDERED: APIX5TAB PO (08:50)
[2024-03-10 11:14] VITALS: BP 150/76; TEMP 97.4; O2SAT 97
[2024-03-10] MEDS ORDERED: PIPERACILLIN SODIUM/TAZOBACTAM 3.375 G in IV DEXTROSE 5% 50 ML IV SCH (14:00)
[2024-03-10] MEDS: PIPERACILLIN SODIUM/TAZOBACTAM 3.375 G in IV DEXTROSE 5% 100 ML IV SCH (14:43)
[2024-03-10 16:25] VITALS: BP 158/65; TEMP 97.8; O2SAT 97
[2024-03-10] MEDS: FUROSEMIDE 20 MG/2 ML VIAL IV ONE (18:29)
[2024-03-10] MEDS: LOSARTAN POTASSIUM 50 MG TABLET PO SCH (18:30)
[2024-03-10 19:44] VITALS: BP 146/69; TEMP 98.4; O2SAT 98
[2024-03-10] MEDS: APIXABAN 5 MG TABLET PO SCH (20:29)
[2024-03-11 04:38] VITALS: BP 144/77; TEMP 97.8; O2SAT 96
[2024-03-11] MEDS: LEVOTHYROXINE SODIUM 75 MCG TABLET PO SCH (06:13)
[2024-03-11] MEDS: PANTOPRAZOLE SODIUM 40 MG TABLET.DR PO SCH (06:13)
[2024-03-11] MEDS: AMLODIPINE 5 MG TABLET PO SCH (08:27)
[2024-03-11 20:00] VITALS: BP 141/71; TEMP 97.8; O2SAT 98
[2024-03-12 06:00] VITALS: BP 142/68; TEMP 98; O2SAT 99
[2024-03-12 09:00] VITALS: BP 97/49
[2024-03-12 16:33] LABS: BASOPHILS % (AUTO) 0.6 % (0.0-2.0); EOSINOPHILS # (AUTO) 0.4 K/uL (0.0-0.7); EOSINOPHILS % (AUTO) 7.5 % (0.0-7.0); HEMATOCRIT 37.8 % (31.2-41.9); HEMOGLOBIN 12.5 g/dL (10.9-14.3); LYMPHOCYTES # (AUTO) 1.6 K/uL (0.8-4.8); LYMPHOCYTES % (AUTO) 31.7 % (20.5-51.5); MEAN CORPUSCULAR HEMOGLOBIN 30.3 uug (24.7-32.8); MEAN CORPUSCULAR HGB CONC 33 g/dL (32.3-35.6); MEAN CORPUSCULAR VOLUME 91.5 fL (75.5-95.3); MONOCYTES # (AUTO) 0.5 K/uL (0.1-1.30); NEUTROPHILS # (AUTO) 2.6 K/uL (1.8-8.9); NEUTROPHILS % (AUTO) 51.2 % (38.5-71.5); PLATELET COUNT (AUTO) 245 K/uL (179-408); RED BLOOD CELL COUNT(AUTO) 4.13 MIL/uL (3.63-4.92); RED CELL DISTRIBUTION WIDTH 16.2 % (12.3-17.7)
[2024-03-12 16:39] VITALS: TEMP 98
[2024-03-12] MEDS ORDERED: ACID1TAB4 PO (16:42)
[2024-03-12] MEDS ORDERED: PIPE3.379 IV (16:42)
[2024-03-12] MEDS ORDERED: ATOR10TA PO (16:42)
[2024-03-12 16:59] LABS: DIFFERENTIAL COMMENT 1
[2024-03-12 17:09] LABS: ALANINE AMINOTRANSFERASE 16 U/L (14-59); ALBUMIN 2.7 g/dL (3.4-5.0); ALKALINE PHOSPHATASE 107 U/L (50-136); ASPARTATE AMINOTRANSFERASE 13 U/L (15-37); BILIRUBIN,TOTAL 0.5 mg/dL (0.2-1.0); CALCIUM 8.2 mg/dL (8.5-10.1); CARBON DIOXIDE 23 mmol/L (21-32); CHLORIDE 106 mmol/L (98-107); CREATININE 0.9 mg/dL (0.6-1.3); GLUCOSE 138 mg/dL (74-106); MAGNESIUM 1.8 mg/dL (1.8-2.4); PHOSPHOROUS 3.5 mg/dL (2.5-4.9); POTASSIUM 3.7 mmol/L (3.5-5.1); SODIUM SERUM 139 mmol/L (136-145); UREA NITROGEN, BLOOD 8 mg/dL (7-18)
[2024-03-12] MEDS ORDERED: ONDA4AMP IJ (22:30)
== END 2024-03-12 21:00 | DRG 371 ==
LOC: ER 17:38 → MEDSURG3 22:11
PROVIDERS: ATTEND Internal Medicine
PROC: 05HB33Z Insertion of Infusion Device into Right Basilic Vein, Percutaneous Approach (ICD-10-PCS; principal; 2024-03-10)
DX: A04.9 Bacterial intestinal infection, unspecified (principal); I50.31 Acute diastolic (congestive) heart failure; E44.0 Moderate protein-calorie malnutrition; F03.93 Unspecified dementia, unspecified severity, with mood disturbance; I48.20 Chronic atrial fibrillation, unspecified; K57.30 Diverticulosis of large intestine without perforation or abscess without bleeding; K44.9 Diaphragmatic hernia without obstruction or gangrene; Z86.16 Personal history of COVID-19; Z88.1 Allergy status to other antibiotic agents; E78.5 Hyperlipidemia, unspecified; E66.9 Obesity, unspecified; Z68.36 Body mass index [BMI] 36.0-36.9, adult; E88.09 Other disorders of plasma-protein metabolism, not elsewhere classified; Z90.710 Acquired absence of both cervix and uterus; G31.9 Degenerative disease of nervous system, unspecified; K40.20 Bilateral inguinal hernia, without obstruction or gangrene, not specified as recurrent; R26.81 Unsteadiness on feet; M41.9 Scoliosis, unspecified; I70.0 Atherosclerosis of aorta; M15.9 Polyosteoarthritis, unspecified; I11.0 Hypertensive heart disease with heart failure; Z87.01 Personal history of pneumonia (recurrent); Z87.828 Personal history of other (healed) physical injury and trauma; Z91.81 History of falling; Z79.01 Long term (current) use of anticoagulants; Z79.899 Other long term (current) drug therapy; E05.90 Thyrotoxicosis, unspecified without thyrotoxic crisis or storm; E03.9 Hypothyroidism, unspecified; Z79.890 Hormone replacement therapy
CPT/HCPCS: 36415; 71045; 83690; 83735; 84100; 84443; 84484; 85025; 85730; G0378; J0360; J1650; J1940; J2470; J2543; J7040

== ENCOUNTER 2024-03-12 21:18 | Inpatient (IN) | payer MEDICARE ==
[~2024-03-12 21:18] MED LIST changes: +ACID1TAB4 PO; +APIX5TAB PO; -APIX5TAB4 PO; +ATOR10TA PO; -ESCI-9 PO; -HYDR50TA68 PO; +PIPE3.379 IV
[2024-03-12 21:25] VITALS: BP 151/70; TEMP 98.2; O2SAT 97
[2024-03-12] MEDS ORDERED: ONDA4AMP IJ (22:30)
[2024-03-12] MEDS ORDERED: Medication Not On Formulary EA (Acetaminophen (Tylenol) 2 CAP) PO PRN (23:15)
[2024-03-13 06:10] VITALS: BP 148/51; TEMP 98.1; O2SAT 96
[2024-03-13] MEDS: LEVOTHYROXINE SODIUM 75 MCG TABLET PO SCH (06:14)
[2024-03-13] MEDS: PANTOPRAZOLE SODIUM 40 MG TABLET.DR PO SCH (06:14)
[2024-03-13 08:00] VITALS: BP 157/70; TEMP 98.2; O2SAT 97
[2024-03-13] MEDS: AMLODIPINE 5 MG TABLET PO SCH (09:21)
[2024-03-13] MEDS: ACIDOPHILUS/BULGARICUS CHEW TAB PO SCH (09:21)
[2024-03-13] MEDS: LOSARTAN POTASSIUM 50 MG TABLET PO SCH (09:21)
[2024-03-13] MEDS: APIXABAN 5 MG TABLET PO SCH (09:23)
[2024-03-13] MEDS: PIPERACILLIN SODIUM/TAZOBACTAM 3.375 G in IV DEXTROSE 5% 100 ML IV SCH (10:45)
[2024-03-13 16:00] VITALS: BP 127/73; TEMP 97.2; O2SAT 96
[2024-03-13 20:07] VITALS: BP 167/56; TEMP 97.7; O2SAT 98
[2024-03-13] MEDS: ATORVASTATIN 10 MG TABLET PO SCH (21:40)
[2024-03-14 05:15] VITALS: BP 152/47; TEMP 98.3; O2SAT 96
[2024-03-14 07:51] VITALS: BP 158/91; TEMP 97.2; O2SAT 98
[2024-03-14] MEDS: ACETAMINOPHEN 325 MG TABLET PO PRN (11:30)
[2024-03-14] MEDS: QUETIAPINE FUMARATE 25 MG TABLET PO PRN (11:31)
[2024-03-14 16:08] VITALS: BP 138/82; TEMP 94.4; O2SAT 93
[2024-03-14 20:39] VITALS: BP 158/83; TEMP 97.5; O2SAT 95
[2024-03-14] MEDS: AMLODIPINE 5 MG TABLET PO SCH (21:05)
[2024-03-14 21:06] VITALS: BP 153/72
[2024-03-15 06:45] VITALS: BP 150/80; TEMP 97.4; O2SAT 94
[2024-03-15 08:00] VITALS: BP 138/63; TEMP 97.4; O2SAT 95
[2024-03-15 09:34] LABS: BASOPHILS # (AUTO) 0.1 K/UL (0.0-0.2); BASOPHILS % (AUTO) 1.1 % (0.0-2.0); DIFFERENTIAL COMMENT 0; EOSINOPHILS # (AUTO) 0.5 K/uL (0.0-0.7); EOSINOPHILS % (AUTO) 7.4 % (0.0-7.0); HEMATOCRIT 42.3 % (31.2-41.9); HEMOGLOBIN 13.6 g/dL (10.9-14.3); LYMPHOCYTES # (AUTO) 1.6 K/uL (0.8-4.8); LYMPHOCYTES % (AUTO) 23.7 % (20.5-51.5); MEAN CORPUSCULAR HEMOGLOBIN 29.9 uug (24.7-32.8); MEAN CORPUSCULAR HGB CONC 32 g/dL (32.3-35.6); MONOCYTES # (AUTO) 0.7 K/uL (0.1-1.30); MONOCYTES % (AUTO) 10.7 % (0.0-11.0); NEUTROPHILS # (AUTO) 3.8 K/uL (1.8-8.9); NEUTROPHILS % (AUTO) 57.1 % (38.5-71.5); PLATELET COUNT (AUTO) 217 K/uL (179-408); RED BLOOD CELL COUNT(AUTO) 4.54 MIL/uL (3.63-4.92); RED CELL DISTRIBUTION WIDTH 16.9 % (12.3-17.7); WHITE BLOOD COUNT (AUTO) 6.7 K/uL (3.8-11.8)
[2024-03-15 12:15] LABS: ALANINE AMINOTRANSFERASE 24 U/L (14-59); ALBUMIN 2.6 g/dL (3.4-5.0); ALKALINE PHOSPHATASE 104 U/L (50-136); ASPARTATE AMINOTRANSFERASE 26 U/L (15-37); BILIRUBIN,TOTAL 0.6 mg/dL (0.2-1.0); CALCIUM 8.5 mg/dL (8.5-10.1); CARBON DIOXIDE 24 mmol/L (21-32); CHLORIDE 107 mmol/L (98-107); CREATININE 0.8 mg/dL (0.6-1.3); GLUCOSE 87 mg/dL (74-106); MAGNESIUM 1.8 mg/dL (1.8-2.4); PHOSPHOROUS 3.3 mg/dL (2.5-4.9); POTASSIUM 3.7 mmol/L (3.5-5.1); SODIUM SERUM 141 mmol/L (136-145); UREA NITROGEN, BLOOD 16 mg/dL (7-18)
[2024-03-15 16:00] VITALS: BP 125/69; TEMP 97.4; O2SAT 98
[2024-03-15 20:39] VITALS: BP 138/56; TEMP 96.8; O2SAT 96
[2024-03-15] MEDS: AMLODIPINE 5 MG TABLET PO SCH (21:22)
[2024-03-16 06:18] VITALS: BP 144/58; TEMP 96.6; O2SAT 96
[2024-03-16 09:15] VITALS: BP 146/82; TEMP 97.4; O2SAT 98
[2024-03-16 17:50] VITALS: BP 109/44; TEMP 97.6; O2SAT 96
[2024-03-16] MEDS ORDERED: REMEDY ESSENTIAL ZINC PASTE 113 GM TOP PRN (18:00)
[2024-03-16 21:00] VITALS: BP 136/60; TEMP 98.2; O2SAT 96
[2024-03-17 07:05] VITALS: BP 133/52; TEMP 97.5; O2SAT 99
[2024-03-17 08:12] VITALS: BP 163/74; TEMP 97.4; O2SAT 97
[2024-03-17] MEDS: TRAMADOL HCL 50 MG TABLET PO PRN (08:29)
[2024-03-17 15:46] VITALS: TEMP 97.3
[2024-03-17 21:36] VITALS: BP 121/41; TEMP 97.8; O2SAT 95
[2024-03-17] MEDS: QUETIAPINE FUMARATE 25 MG TABLET PO PRN (23:19)
[2024-03-18 07:43] VITALS: BP 146/71; TEMP 98.3; O2SAT 98
[2024-03-18 12:32] VITALS: BP 161/46; TEMP 97.8; O2SAT 99
[2024-03-18 19:51] VITALS: BP 141/57; TEMP 97.3; O2SAT 95
[2024-03-18 20:43] VITALS: BP 128/58; TEMP 99.1; O2SAT 100
[2024-03-19 06:09] VITALS: BP 148/72; TEMP 97.9; O2SAT 97
[2024-03-19 08:00] VITALS: BP 150/57; TEMP 97.8; O2SAT 95
[2024-03-19 16:07] VITALS: BP 125/49; TEMP 97.8; O2SAT 98
[2024-03-19] MEDS: CLOTRIMAZOLE 1% CREAM 30 GM TUBE TOP SCH (17:02)
[2024-03-19 21:19] VITALS: BP 145/57; TEMP 97.9; O2SAT 97
[2024-03-20 07:01] VITALS: BP 147/55; TEMP 97.9; O2SAT 96
[2024-03-20 07:56] VITALS: BP 152/69; TEMP 97.6; O2SAT 97
[2024-03-20 15:49] VITALS: BP 145/50; TEMP 97.9; O2SAT 97
[2024-03-20 20:46] VITALS: BP 117/45; TEMP 97.4; O2SAT 96
[2024-03-21 07:16] VITALS: BP 154/58; TEMP 97.8; O2SAT 95
[2024-03-21 07:50] VITALS: BP 140/52; TEMP 97.8; O2SAT 97
[2024-03-21 15:37] VITALS: BP 128/45; TEMP 97.6; O2SAT 95
[2024-03-21 21:14] VITALS: BP 142/48; TEMP 98.1; O2SAT 98
[2024-03-22 05:11] VITALS: BP 145/61; TEMP 97.7; O2SAT 98
[2024-03-22 08:56] VITALS: BP 133/74; TEMP 97.8; O2SAT 98
[2024-03-22 16:06] VITALS: BP 125/51; TEMP 98; O2SAT 97
[2024-03-22] MEDS: LORAZEPAM 1 MG TABLET PO PRN (18:21)
[2024-03-22 20:09] VITALS: BP 146/56; TEMP 97.7; O2SAT 96
[2024-03-22] MEDS: QUETIAPINE FUMARATE 25 MG TABLET PO ONE (23:11)
[2024-03-23] MEDS: OLANZAPINE 10 MG VIAL IM PRN (00:39)
[2024-03-23 06:11] VITALS: BP 138/58; TEMP 97.6; O2SAT 96
[2024-03-23 09:06] VITALS: BP 138/58
== END 2024-03-23 17:00 | DRG 372 ==
PROVIDERS: ADMIT Physical Medicine & Rehabilitation Pain Medicine; ATTEND Physical Medicine & Rehabilitation Pain Medicine
DX: A04.9 Bacterial intestinal infection, unspecified (principal); E44.0 Moderate protein-calorie malnutrition; I48.20 Chronic atrial fibrillation, unspecified; F03.90 Unspecified dementia, unspecified severity, without behavioral disturbance, psychotic disturbance, mood disturbance, and anxiety; E03.9 Hypothyroidism, unspecified; E66.9 Obesity, unspecified; Z68.36 Body mass index [BMI] 36.0-36.9, adult; E78.5 Hyperlipidemia, unspecified; E88.09 Other disorders of plasma-protein metabolism, not elsewhere classified; F32.A Depression, unspecified; I10 Essential (primary) hypertension; K40.20 Bilateral inguinal hernia, without obstruction or gangrene, not specified as recurrent; K57.30 Diverticulosis of large intestine without perforation or abscess without bleeding; M19.90 Unspecified osteoarthritis, unspecified site; Z88.1 Allergy status to other antibiotic agents; Z90.710 Acquired absence of both cervix and uterus; Z88.8 Allergy status to other drugs, medicaments and biological substances; Z86.16 Personal history of COVID-19; R26.81 Unsteadiness on feet; R53.1 Weakness
CPT/HCPCS: 36415; 83735; 84100; 85025; 97535-GO-CO; A4663; J2358; J2543